=== PATIENT | female | born 1990 | race Caucasian/White ===

== ENCOUNTER 2023-06-09 06:43 | Inpatient (IN) ==
[2023-06-09] MEDS ORDERED: LIDOCAINE 1% LOCAL 20 ML VIAL INFIL PRN (07:47)
[2023-06-09] MEDS ORDERED: OXYTOCIN 30 UNITS/500 ML BAG IV PRN ×2 (07:47→16:08)
[2023-06-09] MEDS ORDERED: Patient's ALLERGY Info needs ENTERED SCH (08:00)
--- NOTE | 2023-06-09 08:09 | History & Physical Report ---
Date of Service June 09, 2023 Assessment & Plan (1) 40 weeks gestation of : (2) PROM (premature rupture of membranes): Plan: Admit, routine labs Start misoprostol 25 mcg sublingual every 4 hours for augmentation Start Pitocin when patient has made cervical change for continued augmentation Epidural if patient request Anticipate spontaneous vaginal delivery (3) Antepartum anemia complicating in third trimester: Plan: Admission hemoglobin pending (4) Elevated BP without diagnosis of hypertension: Plan: PIH labs pending History of Present Illness Chief Complaint: LOF, elevated BP Primary Care Provider: NO PCP Patient is a pleasant 32-year-old -0-2-0 at 40 weeks and 0 days dated by last menstrual period consistent with a 6-week ultrasound who presents to labor and delivery for rupture of membranes at 5 AM. States she felt a small gush of fluid, and then got up and had a large amount of fluid trickle down her leg. Notes good movement. Denies any bleeding. Notes irregular contractions. Denies any headache, blurry vision, right upper quadrant epigastric pain. Otherwise feeling well On admission to labor and delivery noted to elevated blood pressures has been complicated by antepartum anemia in which she is taking p.o. iron, has not needed to take any IV infusions of iron GBS negative History of SAB x2, history of 1 D&C after the first miscarriage Allergies Allergy/AdvReac Type Severity Reaction Status Date / Time latex Allergy Mild Irritable Verified 06/09/23 08:06 amoxicillin [From Augmentin] Allergy Hives Verified 06/09/23 08:06 clavulanic acid Allergy Hives Verified 06/09/23 08:06 [From Augmentin] Patient History Surgical History (Updated 06/09/23 @ 07:49 by Shellie Mccarthy RN) History of dilation and curettage JUNE 2021. Family History (Updated 06/09/23 @ 07:57 by Shellie Mccarthy RN) Grandmother (Maternal) Diabetes Father Hypertension Mother Anxiety and depression Mother Hyperlipemia Grandfather (Paternal) Cancer Grandmother (Paternal) No problems noted. Grandfather (Maternal) Cancer Social History Smoking Status: Never smoker Hx Alcohol Use: No Hx Substance Use: No Preferred Language: Yi [employer] Attendant Required: No Beliefs That Will Affect Care: None marital status: Current Living Situation: Spouse Current Living Situation Comment: Patient lives with and a dog. Feels Safe at Home: Yes Safety Concerns: Feels Safe At This Time OB History H[employer]TER History See record, denies history of sexually transmitted infections Review of Systems All systems reviewed & are unremarkable except as noted in HPI & below Physical Exam Constitutional: WD/WN, vitals as above Respiratory: normal respiratory effort, lungs clear to auscultation Cardiovascular: RRR, no murmur, no edema Gastrointestinal (Abdomen): normal bowel sounds, soft, nontender, no hepatosplenomegaly Gravid, Herb's 3500 Genitourinary: Cervix: 1/50/-3, posterior, firm Grossly ruptured on exam, nitrazine positive Results & Data Vital Signs (Past 12 Hours) Vital Signs Temp Pulse Resp BP 06/09/23 08:01 83 06/09/23 08:01 134/79 06/09/23 07:57 92 H 06/09/23 07:57 140/85 06/09/23 07:16 85 06/09/23 07:16 141/82 H 06/09/23 07:14 37.1 C 96 H 18 143/80 H 06/09/23 07:00 96 H 143/80 H Monitoring External Monitor heart tracing: Baseline 160, moderate variability, no accelerations, no decelerations Tocodynamometer Tocometer: Irregular contractions
[2023-06-09 08:13] LABS: Basophils # (auto) 0.03 K/uL (0.00-0.20); Basophils % (auto) 0.3 %; Eosinophils # (auto) 0.05 K/uL (0.00-0.50); Eosinophils % (auto) 0.5 %; Hematocrit (blood only) 35.7 % (37.0-47.0); Hemoglobin 12.1 g/dl (12.0-16.0); Immature Granulocytes # (auto) 0.04 K/uL (0.01-0.20); Immature Granulocytes % (auto) 0.4 %; Lymphocytes # (auto) 1.44 K/uL (1.20-3.40); Lymphocytes % (auto) 15.7 %; Mean Corpuscular Hemoglobin 29.9 pg (25.0-34.0); Mean Corpuscular Hgb Conc 33.9 g/dL (32.0-36.0); Mean Corpuscular Volume 88.1 fL (80.0-100.0); Mean Platelet Volume 10.3 fL (9.4-12.4); Monocytes # (auto) 0.49 K/uL (0.11-0.59); Monocytes % (auto) 5.3 %; Neutrophils # (auto) 7.15 K/uL (1.40-6.50); Neutrophils % (auto) 77.8 %; Platelet Count 234 K/uL (130-400); RDW Coefficient of Variation 13.6 % (11.5-14.5); Red Blood Count 4.05 M/uL (4.20-5.40)
[2023-06-09 08:29] LABS: Albumin Globulin Ratio 1.1 (0.9-2); Albumin Level 3.4 gm/dl (3.4-5.0); BUN Creatinine Ratio 16.9 (10-20); Bilirubin,Total 0.3 mg/dl (0.2-1.0); Calcium 8.7 mg/dl (8.6-10.3); Creatinine Clr Calc Pharmacy 138.3 ml/min; Est GFR (African American) 134.3 ml/min; Est GFR (Non-African American) 115.8 ml/min; Globulin 3.1 gm/dl (2.5-4.0); Potassium 3.6 mmol/L (3.5-5.1); Total Protein 6.5 gm/dl (6.0-8.3)
[2023-06-09] MEDS: LACTATED RINGER'S 1,000 ML IV PRN ×3 (08:30→20:12)
[2023-06-09] MEDS: miSOPROStoL 25 MCG TAB SL SCH ×3 (08:36→17:30)
[2023-06-09 10:15] LABS: Creatinine Urine Random 56.2 mg/dl; Protein Creatinine Ratio Urine 0.3 (0-0.2); Total Protein Urine Random 14.2 mg/dl (0-11.9)
--- NOTE | 2023-06-09 13:39 | Obstetrical Progress Note ---
Date of Service June 09, 2023 Assessment & Plan (1) 40 weeks gestation of : (2) PROM (premature rupture of membranes): Plan: continue misoprostol 25 mcg sublingual every 4 hours for augmentation Start Pitocin when patient has made cervical change for continued augmentation Epidural if patient request Anticipate spontaneous vaginal delivery (3) Antepartum anemia complicating in third trimester: Plan: Admission hemoglobin pending (4) Pre-eclampsia during in third trimester, antepartum: Plan: Daily CBC and CMP Mag and BP treatment if SBP 160 and or DBP 110 Continue to monitor symptoms SCDs ordered Admission and Anticipated Discharge Date Admission Date: June 09, 2023 Subjective Updated patient and SO at bedside about dx for preeclampsia without severe BP Results & Data Vital Signs (Past 12 Hours) Vital Signs Temp Pulse Resp BP 06/09/23 12:28 18 06/09/23 12:28 36.4 C L 18 06/09/23 12:28 68 06/09/23 12:28 140/71 06/09/23 10:50 37.1 C 06/09/23 09:10 18 06/09/23 09:10 37.1 C 18 06/09/23 08:01 83 06/09/23 08:01 134/79 06/09/23 07:57 92 H 06/09/23 07:57 140/85 06/09/23 07:16 85 06/09/23 07:16 141/82 H 06/09/23 07:14 37.1 C 96 H 18 143/80 H 06/09/23 07:00 96 H 143/80 H
--- NOTE | 2023-06-09 16:10 | Obstetrical Progress Note ---
Date of Service June 09, 2023 Assessment & Plan (1) 40 weeks gestation of : (2) PROM (premature rupture of membranes): Plan: Start oxytocin for augmentation Epidural if patient request Anticipate spontaneous vaginal delivery (3) Antepartum anemia complicating in third trimester: Plan: Admission H&H 12.1/35.7% (4) Pre-eclampsia during in third trimester, antepartum: Plan: Daily CBC and CMP Mag and BP treatment if SBP 160 and or DBP 110 Continue to monitor symptoms SCDs in place Admission and Anticipated Discharge Date Admission Date: June 09, 2023 Subjective Doing well, contractions of got more painful Physical Exam Genitourinary: heart tracing: Baseline 130, moderate variability, positive accelerations no decelerations, category 1 tracing Tocometer: Contractions every 2 to 7 minutes Cervix: 2/50/-2, moderate meconium Results & Data Vital Signs (Past 12 Hours) Vital Signs Temp Pulse Resp BP 06/09/23 15:33 80 06/09/23 15:33 134/81 06/09/23 15:32 18 06/09/23 15:32 36.9 C 18 06/09/23 14:41 18 06/09/23 14:41 37.2 C 18 06/09/23 14:41 73 06/09/23 14:41 136/73 06/09/23 13:55 18 06/09/23 13:55 37.2 C 18 06/09/23 13:30 18 06/09/23 13:30 18 06/09/23 12:28 18 06/09/23 12:28 36.4 C L 18 06/09/23 12:28 68 06/09/23 12:28 140/71 06/09/23 10:50 37.1 C 06/09/23 09:10 18 06/09/23 09:10 37.1 C 18 06/09/23 08:01 83 06/09/23 08:01 134/79 06/09/23 07:57 92 H 06/09/23 07:57 140/85 06/09/23 07:16 85 06/09/23 07:16 141/82 H 06/09/23 07:14 37.1 C 96 H 18 143/80 H 06/09/23 07:00 96 H 143/80 H
[2023-06-09] MEDS ORDERED: ePHEDrine sulfate 50 MG/ML AMP ONE (19:09)
[2023-06-09] MEDS ORDERED: fentaNYL citrate PF 100 MCG/2 ML VIAL ONE (19:09)
[2023-06-09] MEDS ORDERED: SODIUM CHLORIDE 0.9% PF INJ 10 ML VIAL ONE (19:09)
[2023-06-09] MEDS ORDERED: LIDOCAINE 2%/EPINEPHRINE 1:200,000 20 ML PF ONE (19:10)
[2023-06-09] MEDS ORDERED: fentANYL 2 MCG/ML BUPIVacaine 0.125%-NSS 100ML BAG ONE (19:10)
[2023-06-09] MEDS ORDERED: BUPIVACAINE 0.25% PF 30 ML VIAL ONE (19:10)
[2023-06-09] MEDS ORDERED: fentaNYL citrate PF 100 MCG/2 ML VIAL EPI PRN (19:11)
[2023-06-09] MEDS ORDERED: ROPIVACAINE 0.5% PF 5 MG/ML 20 ML VIAL EPI PRN (19:11)
[2023-06-09] MEDS ORDERED: SODIUM CHLORIDE 0.9% PF INJ 10 ML VIAL EPI PRN (19:11)
[2023-06-09] MEDS ORDERED: SODIUM CHLORIDE 0.9% PF INJ 10 ML VIAL EPI STA (19:11)
[2023-06-09] MEDS ORDERED: NALBUPHINE HCL 5 MG in SYRINGE 0 ML IV PRN (19:11)
[2023-06-09] MEDS ORDERED: ONDANSETRON INJ 2 MG/ML 2 ML VIAL IV PRN (19:11)
[2023-06-09] MEDS ORDERED: LIDOCAINE 2%/EPINEPHRINE 1:200,000 20 ML PF EPI STA (19:11)
[2023-06-09] MEDS ORDERED: ePHEDrine sulfate 50 MG/ML AMP IV PRN (19:11)
[2023-06-09] MEDS ORDERED: BUPIVACAINE 0.25% PF 30 ML VIAL EPI PRN (19:11)
[2023-06-09] MEDS ORDERED: BUPIVACAINE 0.25% PF 30 ML VIAL EPI STA (19:11)
[2023-06-09] MEDS ORDERED: NALOXONE HCL 1 MG in SODIUM CHLORIDE 0.9% 1,000 ML IV PRN (19:11)
[2023-06-09] MEDS ORDERED: fentaNYL citrate PF 100 MCG/2 ML VIAL EPI STA (19:11)
[2023-06-09] MEDS ORDERED: LIDOCAINE 2% MPF LOCAL 5 ML VIAL EPI PRN (19:11)
[2023-06-09] MEDS ORDERED: diphenhydrAMINE 50 MG/ML VIAL IV PRN (19:11)
--- NOTE | 2023-06-09 19:13 | Anesthesiology Consultation ---
Date of Service June 09, 2023 Assessment & Plan (1) Encounter for pre-operative examination: Chart Review Chart Review: Patient NOT seen in Pre Admission Testing and Acceptable Risk for Labor Epidural Consults Requested none History Height/Weight Height: 5 ft 4 in Weight: 97.522 kg Allergies Allergy/AdvReac Type Severity Reaction Status Date / Time latex Allergy Mild Irritable Verified 06/09/23 08:06 amoxicillin [From Augmentin] Allergy Hives Verified 06/09/23 08:06 clavulanic acid Allergy Hives Verified 06/09/23 08:06 [From Augmentin] Medications Home Medications Medication Instructions Recorded Confirmed Last Taken Pepcid 1 tab PO DAILY 06/09/23 06/09/23 06/08/23 20:00 1 tab PO DAILY 06/09/23 06/09/23 06/09/23 06:00 cetirizine 1 tab PO DAILY PRN Itching 06/09/23 06/09/23 06/07/23 07:00 iron 1 tab PO DAILY 06/09/23 06/09/23 06/09/23 06:00 Active Medications Generic Name Dose Route Start Last Admin Trade Name Freq PRN Reason Stop Dose Admin Bupivacaine HCl 30 ml 06/09/23 19:11 06/09/23 19:32 Bupivacaine 0.25% Pf 30 Ml Vial EPI 06/10/23 19:10 30 ml ONCE PRN Administration Epidural Redose Lactated Ringer's 1,000 mls @ 125 mls/hr 06/09/23 07:47 06/09/23 19:32 Lr IV 06/11/23 07:46 125 mls/hr .Q8H PRN Infusion L&D Protocol Protocol Oxytocin 30 units in 500 mls @ 2 mls/hr 06/09/23 16:08 06/09/23 19:03 Pitocin IV 06/11/23 16:07 0.12 units/hr .Q24H PRN 2 mls/hr Labor Induction/Augmentation Titration Protocol 0.12 UNITS/HR Misoprostol 25 mcg 06/09/23 08:00 06/09/23 17:30 Misoprostol 25 Mcg Tab SL 07/09/23 07:59 Not Given Q4 JUSTIN Past Medical History Medical History (Updated 06/09/23 @ 19:13 by Emir Kurtz MD) Encounter for pre-operative examination Elevated BP without diagnosis of hypertension Exercise / Class Metabolic Activity II 4-5 Yardwork/Stairs/Walk up hill Past Family History Family History Grandmother (Maternal) Diabetes Father Hypertension Mother Anxiety and depression Mother Hyperlipemia Grandfather (Paternal) Cancer Grandmother (Paternal) No problems noted. Grandfather (Maternal) Cancer Past Surgical History Surgical History History of dilation and curettage JUNE 2021. Past Anesthesia History No Hx of Anesthesia Complications and No Family Hx of Anesthesia Complications History of PONV No Hx of PONV and No Hx of Motion Sickness Social History Smoking Status: Never smoker Hx Alcohol Use: No Hx Substance Use: No Physical Exam Vital Signs Last Vital Signs Temp 37.0 C 06/09/23 19:08 Pulse 100 H 06/09/23 19:34 Resp 18 06/09/23 19:08 BP 131/79 06/09/23 19:34 Pulse Ox 100 06/09/23 19:32 Testing Laboratory Results 06/09/23 07:50 06/09/23 07:50
[2023-06-09] MEDS: fentANYL 2 MCG/ML BUPIVacaine 0.125%-NSS 100ML BAG EPI PRN (19:33)
[2023-06-10] MEDS: LACTATED RINGER'S 1,000 ML IV PRN (02:05)
[2023-06-10] MEDS: fentANYL 2 MCG/ML BUPIVacaine 0.125%-NSS 100ML BAG EPI PRN (03:33)
[2023-06-10] MEDS ORDERED: ACETAMINOPHEN 500 MG TAB ONE (04:48)
[2023-06-10] MEDS ORDERED: GENTAMICIN CONSULT ACTIVE PRN (05:06)
[2023-06-10] MEDS ORDERED: CLINDAMYCIN/D5W 900 MG/50 ML BAG IV STA (05:08)
[2023-06-10] MEDS ORDERED: BENZOCAINE 20% SPRY 85 APPLN/85 GM CAN EXT PRN (05:10)
[2023-06-10] MEDS ORDERED: OXYTOCIN 30 UNITS/500 ML BAG IV PRN (05:10)
[2023-06-10] MEDS ORDERED: DIPHTHERIA/TETANUS/PERTUSSIS Vaccine (Tdap, Age 7+yrs) 0.5mL SYR/VL IM ONE (05:10)
[2023-06-10] MEDS ORDERED: ACETAMINOPHEN 325 MG TAB PO PRN (05:10)
[2023-06-10] MEDS ORDERED: ACETAMINOPHEN W/CODEINE #3 1 TAB PO PRN (05:10)
[2023-06-10] MEDS ORDERED: HYDROCORTISONE ACETATE 25 MG SUPP PR PRN (05:10)
--- NOTE | 2023-06-10 05:15 | Delivery Summary ---
Vaginal Delivery Summary Date of Service June 10, 2023 Vaginal Delivery Summary Delivery Note History synopsis: 32-year-old -0-2-0 admitted at 40 weeks for premature rupture of membranes. She was noted to be 1 cm dilated and started on the misoprostol 25 mcg sublingual x2 doses. She progressed to 2 cm. Noted moderate meconium at the time. Was started on oxytocin for augmentation. Received an epidural for pain control and then progressed to 4 to 5 cm. She continued to make good cervical change, but during the night she remained having a category 2 tracing with heart tones baseline 170s, with good variability. And at times would have a baseline that would be between 1 50-1 60. Patient pushed with nursing staff for approximately 1-1/2 hours before I was called for delivery Delivery Summary: Patient was placed in the dorsal lithotomy position. She was prepped and draped in the usual sterile fashion. Upon maternal pushing the head was delivered atraumatically followed by the anterior shoulders, posterior shoulders then the remainder of the infants body. The infant was immediately placed on mother's abdomen, dried and stimulated. Thick meconium was noted and baby was warm to touch. The infants mouth and nose were bulb suctioned by nursing staff. A female was delivered at 0443 weight pending, with APGARS of 7 at 1 minute and 9 at 5 minutes. The was handed off to the awaiting nursing staff. Cord blood gases were obtained. The placenta delivered intact with three vessel cord. Placenta was sent to pathology. Thirty units of Pitocin were added to the IV fluid and allowed to run freely. Uterine massage was performed until uterus was deemed firm. Upon inspection of the perineum, cervix were intact. Second degree laceration was noted which was repaired with 3-0 vicryl in the usual fashion. Noted a small right sidewall that was bleeding, repaired with 3-0 Vicryl in a running fashion. Good hemostasis was noted. Upon re-inspection the patient was hemostatic. Uterus again massaged and found to be firm. Needle and sponge counts were correct. At the time of delivery patient's temperature was 37.7. She never had a documented fever while in labor. Her temperature after delivery was 37.0. Patient was given 1 g of Tylenol after delivery. However baby after delivery had a temperature of 39.5 and due to the tachycardia and maternal tachycardia, patient will be treated for suspected chorioamnionitis for 24 hours Patient was stable and allowed to recover in L&D room. was stable and remained in room with mother in the labor and delivery unit. EBL 400 mls
[2023-06-10 05:24] LABS: Base Excess Cord Arterial Bld -11.5 mEq/L (-9-1.8); Base Excess Cord Venous Blood -10.8 mEq/L (-7.7-1.9); CO2 Cord Arterial Blood 46 mmHg (39.1-73.5); Cord Venous Blood HCO3 21 mmol/L (18.4-26.8); Cord Venous Blood PCO2 73 mmHg (30.4-57.2); Cord Venous Blood PO2 < 20 mmHg (14.1-43.3); Cord Venous Blood pH 7.06 (7.20-7.44); HCO3 Cord Arterial Blood 17 mmol/L (19.7-28.5); O2 Saturation Cord Venous Bld < 60.0 % (<68); Oxygen Sat Cord Arterial Blood < 60.0 % (<60); PO2 Cord Arterial Blood 33 mmHg (4.1-31.7); pH Cord Arterial Blood 7.17 (7.1-7.38)
[2023-06-10] MEDS ORDERED: GENTAMICIN SULFATE 480 MG in DEXTROSE 5% 100 ML IV STA (05:30)
[2023-06-10 06:16] LABS: Basophils # (auto) 0.04 K/uL (0.00-0.20); Basophils % (auto) 0.2 %; Hematocrit (blood only) 30.3 % (37.0-47.0); Hemoglobin 10.3 g/dl (12.0-16.0); Immature Granulocytes # (auto) 0.14 K/uL (0.01-0.20); Immature Granulocytes % (auto) 0.7 %; Lymphocytes # (auto) 0.71 K/uL (1.20-3.40); Lymphocytes % (auto) 3.5 %; Mean Corpuscular Hemoglobin 29.8 pg (25.0-34.0); Mean Corpuscular Volume 87.6 fL (80.0-100.0); Mean Platelet Volume 10.1 fL (9.4-12.4); Monocytes # (auto) 1.22 K/uL (0.11-0.59); Neutrophils # (auto) 18.17 K/uL (1.40-6.50); Neutrophils % (auto) 89.6 %; Platelet Count 206 K/uL (130-400); RDW Coefficient of Variation 13.8 % (11.5-14.5); RDW Standard Deviation 43.4 fL (36.4-46.3); Red Blood Count 3.46 M/uL (4.20-5.40); White Blood Count 20.28 K/ul (4.8-10.8)
[2023-06-10] MEDS: IBUPROFEN 600 MG TAB PO PRN ×2 (06:24→17:07)
[2023-06-10 06:30] LABS: Albumin Globulin Ratio 1.2 (0.9-2); Albumin Level 2.8 gm/dl (3.4-5.0); BUN Creatinine Ratio 11.1 (10-20); Bilirubin,Total 0.5 mg/dl (0.2-1.0); Calcium 8.3 mg/dl (8.6-10.3); Creatinine Clr Calc Pharmacy 99.9 ml/min; Est GFR (African American) 96.7 ml/min; Est GFR (Non-African American) 83.4 ml/min; Globulin 2.4 gm/dl (2.5-4.0); Potassium 3.7 mmol/L (3.5-5.1); Total Protein 5.2 gm/dl (6.0-8.3)
[2023-06-10] MEDS: CLINDAMYCIN/D5W 900 MG/50 ML BAG IV SCH ×4 (06:56→20:47)
[2023-06-10] MEDS ORDERED: CETIRIZINE HCL 10 MG TABLET PO PRN (08:25)
[2023-06-10] MEDS: PRENATAL VITAMIN 1 TAB PO SCH (08:53)
[2023-06-10] MEDS: DOCUSATE SODIUM 100 MG CAP PO SCH ×2 (08:54→19:36)
[2023-06-10] MEDS: miSOPROStoL 25 MCG TAB SL SCH (09:26)
--- NOTE | 2023-06-10 12:33 | Anesthesia Procedure Note ---
Date of Service June 10, 2023 Anesthesia Post Epidural Note Vital Signs Vital Signs: Temp Pulse Resp BP Pulse Ox O2 Del Method 36.7 C 85 20 145/76 H 98 Room Air 06/10/23 12:06 06/10/23 12:06 06/10/23 12:06 06/10/23 12:06 06/10/23 09:30 06/10/23 09:30 Pain Intensity Bilateral Perineal: Pain Intensity: 1 Notes Mental Status: alert / awake / arousable Nausea / Vomiting: adequately controlled Pain: adequately controlled Airway Patency, RR, SpO2: stable & adequate BP & HR: stable & adequate Hydration State: stable & adequate Neuraxial Anesthesia: was administered and sensory block is resolving Anesthetic Complications: no major complications apparent and Pt Satisfied with anesthetic care Epidural: Removed without complications and With tip intact
[2023-06-11] MEDS: IBUPROFEN 600 MG TAB PO PRN ×3 (04:34→21:05)
[2023-06-11 06:12] LABS: Basophils # (auto) 0.03 K/uL (0.00-0.20); Basophils % (auto) 0.2 %; Eosinophils # (auto) 0.07 K/uL (0.00-0.50); Eosinophils % (auto) 0.5 %; Hematocrit (blood only) 24.7 % (37.0-47.0); Hemoglobin 8.3 g/dl (12.0-16.0); Immature Granulocytes # (auto) 0.11 K/uL (0.01-0.20); Immature Granulocytes % (auto) 0.8 %; Lymphocytes % (auto) 13.4 %; Mean Corpuscular Hemoglobin 30.2 pg (25.0-34.0); Mean Corpuscular Hgb Conc 33.6 g/dL (32.0-36.0); Mean Corpuscular Volume 89.8 fL (80.0-100.0); Monocytes # (auto) 0.84 K/uL (0.11-0.59); Monocytes % (auto) 5.9 %; Neutrophils # (auto) 11.25 K/uL (1.40-6.50); Neutrophils % (auto) 79.2 %; Platelet Count 174 K/uL (130-400); RDW Coefficient of Variation 14.4 % (11.5-14.5); RDW Standard Deviation 46.3 fL (36.4-46.3); Red Blood Count 2.75 M/uL (4.20-5.40)
[2023-06-11] MEDS: CLINDAMYCIN/D5W 900 MG/50 ML BAG IV SCH ×3 (06:38→22:29)
[2023-06-11 06:46] LABS: Albumin Level 2.6 gm/dl (3.4-5.0); Bilirubin,Total 0.2 mg/dl (0.2-1.0); Calcium 8.1 mg/dl (8.6-10.3)
[2023-06-11 06:52] LABS: Albumin Globulin Ratio 1.1 (0.9-2); BUN Creatinine Ratio 12.3 (10-20); Est GFR (African American) 109.8 ml/min; Est GFR (Non-African American) 94.8 ml/min; Globulin 2.4 gm/dl (2.5-4.0)
[2023-06-11] MEDS: DOCUSATE SODIUM 100 MG CAP PO SCH ×2 (07:57→21:05)
[2023-06-11] MEDS: PRENATAL VITAMIN 1 TAB PO SCH (07:57)
--- NOTE | 2023-06-11 10:43 | Obstetrical Progress Note ---
Date of Service June 11, 2023 Assessment & Plan (1) anemia: Venofer IV Subjective Ambulation: ambulating normally Voiding: no voiding problems Passing Gas:: Yes Diet Tolerance:: regular diet Lochia:: Small Feeding Type:: breast feeding Current Pain Level(1-10): 0 doing well. baby with right clavicular fracture. Physical Exam Constitutional WD/WN, vitals as above Gastrointestinal (Abdomen) Inspection/Auscultation: abdomen normal to inspection abdomen soft and non-tender. fundus firm below U Musculoskeletal Extremities: extremities normal to inspection Skin no rashes, warm and dry Neurologic patellar DTR's 2+ bilat, sensation intact Psychiatric A+Ox3, euthymic affect Results & Data Vital Signs (Past 12 Hours) Vital Signs Temp Pulse Resp BP Pulse Ox O2 Del Method 06/11/23 04:12 36.8 C 96 H 18 135/78 97 Room Air 06/10/23 23:26 36.7 C 93 H 18 130/78 98 Room Air Laboratory Results 06/09/23 06/09/23 06/10/23 07:50 09:40 04:43 WBC 9.20 RBC 4.05 L Hgb 12.1 Hct 35.7 L MCV 88.1 MCH 29.9 MCHC 33.9 RDW Std Deviation 44.0 RDW Coeff of Pavan 13.6 Plt Count 234 MPV 10.3 Immature Gran % (Auto) 0.4 Neut % (Auto) 77.8 Lymph % (Auto) 15.7 [place] % (Auto) 5.3 Eos % (Auto) 0.5 Baso % (Auto) 0.3 Neut # (Auto) 7.15 H Lymph # (Auto) 1.44 [place] # (Auto) 0.49 Eos # (Auto) 0.05 Baso # (Auto) 0.03 Immature Gran # (Auto) 0.04 Cord ABG pH 7.17 Cord ABG pCO2 46 Cord ABG pO2 33 H Cord ABG HCO3 17 L Cord ABG Base Excess -11.5 L Cord ABG O2 Sat < 60.0 Cord VBG pH 7.06 L Cord VBG pCO2 73 H Cord VBG pO2 < 20 Cord VBG HCO3 21 Cord VBG Base Excess -10.8 L Cord VBG O2 Sat < 60.0 Blood Gas Comments PIERCE Sodium 134 L Potassium 3.6 Chloride 106 Carbon Dioxide 19 L Anion Gap 9 BUN 11 Creatinine 0.65 Est Cr Clr Drug Dosing 138.3 Est GFR ( Amer) 134.3 Est GFR (Non-Af Amer) 115.8 BUN/Creatinine Ratio 16.9 Glucose 183 H Calcium 8.7 Total Bilirubin 0.3 AST 17 ALT 12 Alkaline Phosphatase 129 H Total Protein 6.5 Albumin 3.4 Globulin 3.1 Albumin/Globulin Ratio 1.1 Ur Random Creatinine 56.2 U Random Total Protein 14.2 H Protein/Creatinin Ratio 0.3 H 06/10/23 06/10/23 06/11/23 04:43 05:52 06:03 WBC 20.28 H D 14.20 H RBC 3.46 L 2.75 L Hgb 10.3 L 8.3 L Hct 30.3 L 24.7 L MCV 87.6 89.8 MCH 29.8 30.2 MCHC 34.0 33.6 RDW Std Deviation 43.4 46.3 RDW Coeff of Pavan 13.8 14.4 Plt Count 206 174 MPV 10.1 10.0 Immature Gran % (Auto) 0.7 0.8 Neut % (Auto) 89.6 79.2 Lymph % (Auto) 3.5 13.4 [place] % (Auto) 6.0 5.9 Eos % (Auto) 0.0 0.5 Baso % (Auto) 0.2 0.2 Neut # (Auto) 18.17 H 11.25 H Lymph # (Auto) 0.71 L 1.90 [place] # (Auto) 1.22 H 0.84 H Eos # (Auto) 0.00 0.07 Baso # (Auto) 0.04 0.03 Immature Gran # (Auto) 0.14 0.11 Cord ABG pH Cord ABG pCO2 Cord ABG pO2 Cord ABG HCO3 Cord ABG Base Excess Cord ABG O2 Sat Cord VBG pH Cord VBG pCO2 Cord VBG pO2 Cord VBG HCO3 Cord VBG Base Excess Cord VBG O2 Sat Blood Gas Comments PIERCE Sodium 131 L 138 Potassium 3.7 4.0 Chloride 103 109 H Carbon Dioxide 17 L 24 Anion Gap 11 5 BUN 10 10 Creatinine 0.90 0.81 Est Cr Clr Drug Dosing 99.9 111.0 Est GFR ( Amer) 96.7 109.8 Est GFR (Non-Af Amer) 83.4 94.8 BUN/Creatinine Ratio 11.1 12.3 Glucose 139 H 104 H Calcium 8.3 L 8.1 L Total Bilirubin 0.5 0.2 AST 23 30 ALT 10 14 Alkaline Phosphatase 108 H 81 Total Protein 5.2 L 5.0 L Albumin 2.8 L 2.6 L Globulin 2.4 L 2.4 L Albumin/Globulin Ratio 1.2 1.1 Ur Random Creatinine U Random Total Protein Protein/Creatinin Ratio
[2023-06-11] MEDS ORDERED: IRON SUCROSE 200 MG in 0.9 % SODIUM CHLORIDE 100 ML IV ONE (11:15)
[2023-06-11] MEDS ORDERED: bisacodyL 5 MG TABEC PO SCH (20:00)
[2023-06-12] MEDS ORDERED: bisacodyL 10 MG SUPP PR PRN (05:10)
[2023-06-12 07:33] LABS: Basophils # (auto) 0.04 K/uL (0.00-0.20); Basophils % (auto) 0.4 %; Eosinophils # (auto) 0.15 K/uL (0.00-0.50); Eosinophils % (auto) 1.4 %; Hematocrit (blood only) 27.1 % (37.0-47.0); Hemoglobin 8.9 g/dl (12.0-16.0); Immature Granulocytes # (auto) 0.17 K/uL (0.01-0.20); Immature Granulocytes % (auto) 1.6 %; Lymphocytes # (auto) 1.71 K/uL (1.20-3.40); Lymphocytes % (auto) 16.4 %; Mean Corpuscular Hemoglobin 29.9 pg (25.0-34.0); Mean Corpuscular Hgb Conc 32.8 g/dL (32.0-36.0); Mean Corpuscular Volume 90.9 fL (80.0-100.0); Mean Platelet Volume 10.3 fL (9.4-12.4); Monocytes # (auto) 0.52 K/uL (0.11-0.59); Neutrophils # (auto) 7.85 K/uL (1.40-6.50); Neutrophils % (auto) 75.2 %; Platelet Count 203 K/uL (130-400); RDW Coefficient of Variation 14.5 % (11.5-14.5); RDW Standard Deviation 47.4 fL (36.4-46.3); Red Blood Count 2.98 M/uL (4.20-5.40); White Blood Count 10.44 K/ul (4.8-10.8)
[2023-06-12 07:54] LABS: Albumin Globulin Ratio 1.1 (0.9-2); BUN Creatinine Ratio 15.2 (10-20); Bilirubin,Total 0.2 mg/dl (0.2-1.0); Calcium 8.6 mg/dl (8.6-10.3); Creatinine Clr Calc Pharmacy 136.2 ml/min; Est GFR (African American) 133.6 ml/min; Est GFR (Non-African American) 115.3 ml/min; Globulin 2.8 gm/dl (2.5-4.0); Potassium 3.9 mmol/L (3.5-5.1); Total Protein 5.8 gm/dl (6.0-8.3)
--- NOTE | 2023-06-12 09:05 | Obstetrical Progress Note ---
Date of Service June 12, 2023 Assessment & Plan Admission and Anticipated Discharge Date Admission Date: June 09, 2023 Subjective Patient is seen and examined. She feels well, no complaints. Ambulating without dizziness Voiding without difficulty Tolerating regular diet with out N&V Bleeding is minimal No fever/ chills/ CP/ SOB/ N&V/ Leg pain Breast feeding without problems Vital Signs Temp Pulse Resp BP Pulse Ox O2 Del Method 06/12/23 00:35 36.6 C 88 16 102/64 99 Room Air 06/11/23 21:00 36.5 C 90 17 121/76 98 Room Air 06/11/23 16:09 37.0 C 101 H 18 135/79 Room Air Lab Results 06/09/23 06/09/23 06/10/23 Range/Units 07:50 09:40 04:43 WBC 9.20 (4.8-10.8) K/ul RBC 4.05 L (4.20-5.40) M/uL Hgb 12.1 (12.0-16.0) g/dl Hct 35.7 L (37.0-47.0) % MCV 88.1 (80.0-100.0) fL MCH 29.9 (25.0-34.0) pg MCHC 33.9 (32.0-36.0) g/dL RDW Std Deviation 44.0 (36.4-46.3) fL RDW Coeff of Pavan 13.6 (11.5-14.5) % Plt Count 234 (130-400) K/uL MPV 10.3 (9.4-12.4) fL Immature Gran % (Auto) 0.4 % Neut % (Auto) 77.8 % Lymph % (Auto) 15.7 % Bulloch % (Auto) 5.3 % Eos % (Auto) 0.5 % Baso % (Auto) 0.3 % Neut # (Auto) 7.15 H (1.40-6.50) K/uL Lymph # (Auto) 1.44 (1.20-3.40) K/uL [place] # (Auto) 0.49 (0.11-0.59) K/uL Eos # (Auto) 0.05 (0.00-0.50) K/uL Baso # (Auto) 0.03 (0.00-0.20) K/uL Immature Gran # (Auto) 0.04 (0.01-0.20) K/uL Cord ABG pH 7.17 (7.1-7.38) Cord ABG pCO2 46 (39.1-73.5) mmHg Cord ABG pO2 33 H (4.1-31.7) mmHg Cord ABG HCO3 17 L (19.7-28.5) mmol/L Cord ABG Base Excess -11.5 L (-9-1.8) mEq/L Cord ABG O2 Sat < 60.0 (<60) % Cord VBG pH 7.06 L (7.20-7.44) Cord VBG pCO2 73 H (30.4-57.2) mmHg Cord VBG pO2 < 20 (14.1-43.3) mmHg Cord VBG HCO3 21 (18.4-26.8) mmol/L Cord VBG Base Excess -10.8 L (-7.7-1.9) mEq/L Cord VBG O2 Sat < 60.0 (<68) % Blood Gas Comments PIERCE Sodium 134 L (136-145) mmol/L Potassium 3.6 (3.5-5.1) mmol/L Chloride 106 (98-107) mmol/L Carbon Dioxide 19 L (21-32) mmol/L Anion Gap 9 (3-11) BUN 11 (6-23) mg/dl Creatinine 0.65 (0.6-1.2) mg/dl Est Cr Clr Drug Dosing 138.3 ml/min Est GFR ( Amer) 134.3 ml/min Est GFR (Non-Af Amer) 115.8 ml/min BUN/Creatinine Ratio 16.9 (10-20) Glucose 183 H (70-99(Fasting)) mg/dl Calcium 8.7 (8.6-10.3) mg/dl Total Bilirubin 0.3 (0.2-1.0) mg/dl AST 17 (13-39) U/L ALT 12 (7-52) U/L Alkaline Phosphatase 129 H (34-104) U/L Total Protein 6.5 (6.0-8.3) gm/dl Albumin 3.4 (3.4-5.0) gm/dl Globulin 3.1 (2.5-4.0) gm/dl Albumin/Globulin Ratio 1.1 (0.9-2) Ur Random Creatinine 56.2 mg/dl U Random Total Protein 14.2 H (0-11.9) mg/dl Protein/Creatinin Ratio 0.3 H (0-0.2) 06/10/23 06/10/23 06/11/23 Range/Units 04:43 05:52 06:03 WBC 20.28 H D 14.20 H (4.8-10.8) K/ul RBC 3.46 L 2.75 L (4.20-5.40) M/uL Hgb 10.3 L 8.3 L (12.0-16.0) g/dl Hct 30.3 L 24.7 L (37.0-47.0) % MCV 87.6 89.8 (80.0-100.0) fL MCH 29.8 30.2 (25.0-34.0) pg MCHC 34.0 33.6 (32.0-36.0) g/dL RDW Std Deviation 43.4 46.3 (36.4-46.3) fL RDW Coeff of Pavan 13.8 14.4 (11.5-14.5) % Plt Count 206 174 (130-400) K/uL MPV 10.1 10.0 (9.4-12.4) fL Immature Gran % (Auto) 0.7 0.8 % Neut % (Auto) 89.6 79.2 % Lymph % (Auto) 3.5 13.4 % [place] % (Auto) 6.0 5.9 % Eos % (Auto) 0.0 0.5 % Baso % (Auto) 0.2 0.2 % Neut # (Auto) 18.17 H 11.25 H (1.40-6.50) K/uL Lymph # (Auto) 0.71 L 1.90 (1.20-3.40) K/uL [place] # (Auto) 1.22 H 0.84 H (0.11-0.59) K/uL Eos # (Auto) 0.00 0.07 (0.00-0.50) K/uL Baso # (Auto) 0.04 0.03 (0.00-0.20) K/uL Immature Gran # (Auto) 0.14 0.11 (0.01-0.20) K/uL Cord ABG pH (7.1-7.38) Cord ABG pCO2 (39.1-73.5) mmHg Cord ABG pO2 (4.1-31.7) mmHg Cord ABG HCO3 (19.7-28.5) mmol/L Cord ABG Base Excess (-9-1.8) mEq/L Cord ABG O2 Sat (<60) % Cord VBG pH (7.20-7.44) Cord VBG pCO2 (30.4-57.2) mmHg Cord VBG pO2 (14.1-43.3) mmHg Cord VBG HCO3 (18.4-26.8) mmol/L Cord VBG Base Excess (-7.7-1.9) mEq/L Cord VBG O2 Sat (<68) % Blood Gas Comments PIERCE Sodium 131 L 138 (136-145) mmol/L Potassium 3.7 4.0 (3.5-5.1) mmol/L Chloride 103 109 H (98-107) mmol/L Carbon Dioxide 17 L 24 (21-32) mmol/L Anion Gap 11 5 (3-11) BUN 10 10 (6-23) mg/dl Creatinine 0.90 0.81 (0.6-1.2) mg/dl Est Cr Clr Drug Dosing 99.9 111.0 ml/min Est GFR ( Amer) 96.7 109.8 ml/min Est GFR (Non-Af Amer) 83.4 94.8 ml/min BUN/Creatinine Ratio 11.1 12.3 (10-20) Glucose 139 H 104 H (70-99(Fasting)) mg/dl Calcium 8.3 L 8.1 L (8.6-10.3) mg/dl Total Bilirubin 0.5 0.2 (0.2-1.0) mg/dl AST 23 30 (13-39) U/L ALT 10 14 (7-52) U/L Alkaline Phosphatase 108 H 81 (34-104) U/L Total Protein 5.2 L 5.0 L (6.0-8.3) gm/dl Albumin 2.8 L 2.6 L (3.4-5.0) gm/dl Globulin 2.4 L 2.4 L (2.5-4.0) gm/dl Albumin/Globulin Ratio 1.2 1.1 (0.9-2) Ur Random Creatinine mg/dl U Random Total Protein (0-11.9) mg/dl Protein/Creatinin Ratio (0-0.2) 06/12/23 Range/Units 07:14 WBC 10.44 (4.8-10.8) K/ul RBC 2.98 L (4.20-5.40) M/uL Hgb 8.9 L (12.0-16.0) g/dl Hct 27.1 L (37.0-47.0) % MCV 90.9 (80.0-100.0) fL MCH 29.9 (25.0-34.0) pg MCHC 32.8 (32.0-36.0) g/dL RDW Std Deviation 47.4 H (36.4-46.3) fL RDW Coeff of Pavan 14.5 (11.5-14.5) % Plt Count 203 (130-400) K/uL MPV 10.3 (9.4-12.4) fL Immature Gran % (Auto) 1.6 % Neut % (Auto) 75.2 % Lymph % (Auto) 16.4 % [place] % (Auto) 5.0 % Eos % (Auto) 1.4 % Baso % (Auto) 0.4 % Neut # (Auto) 7.85 H (1.40-6.50) K/uL Lymph # (Auto) 1.71 (1.20-3.40) K/uL [place] # (Auto) 0.52 (0.11-0.59) K/uL Eos # (Auto) 0.15 (0.00-0.50) K/uL Baso # (Auto) 0.04 (0.00-0.20) K/uL Immature Gran # (Auto) 0.17 (0.01-0.20) K/uL Cord ABG pH (7.1-7.38) Cord ABG pCO2 (39.1-73.5) mmHg Cord ABG pO2 (4.1-31.7) mmHg Cord ABG HCO3 (19.7-28.5) mmol/L Cord ABG Base Excess (-9-1.8) mEq/L Cord ABG O2 Sat (<60) % Cord VBG pH (7.20-7.44) Cord VBG pCO2 (30.4-57.2) mmHg Cord VBG pO2 (14.1-43.3) mmHg Cord VBG HCO3 (18.4-26.8) mmol/L Cord VBG Base Excess (-7.7-1.9) mEq/L Cord VBG O2 Sat (<68) % Blood Gas Comments Sodium 139 (136-145) mmol/L Potassium 3.9 (3.5-5.1) mmol/L Chloride 107 (98-107) mmol/L Carbon Dioxide 27 (21-32) mmol/L Anion Gap 5 (3-11) BUN 10 (6-23) mg/dl Creatinine 0.66 (0.6-1.2) mg/dl Est Cr Clr Drug Dosing 136.2 ml/min Est GFR ( Amer) 133.6 ml/min Est GFR (Non-Af Amer) 115.3 ml/min BUN/Creatinine Ratio 15.2 (10-20) Glucose 84 (70-99(Fasting)) mg/dl Calcium 8.6 (8.6-10.3) mg/dl Total Bilirubin 0.2 (0.2-1.0) mg/dl AST 30 (13-39) U/L ALT 20 (7-52) U/L Alkaline Phosphatase 90 (34-104) U/L Total Protein 5.8 L (6.0-8.3) gm/dl Albumin 3.0 L (3.4-5.0) gm/dl Globulin 2.8 (2.5-4.0) gm/dl Albumin/Globulin Ratio 1.1 (0.9-2) Ur Random Creatinine mg/dl U Random Total Protein (0-11.9) mg/dl Protein/Creatinin Ratio (0-0.2) PE: General: Alert, orientedx3, NAD Abd: soft, NT, fundus firm, below Umbilicus Perineum intact, Lochia rubra minimal Ext; NT, no edema AP: 32 yo s/p , ppd# 2 VSS Afebrile doing well Continue routine care All questions were answered Baby is staying until tomorrow D/C to nesting Results & Data Vital Signs (Past 12 Hours) Vital Signs Temp Pulse Resp BP Pulse Ox O2 Del Method 06/12/23 00:35 36.6 C 88 16 102/64 99 Room Air
[2023-06-12] MEDS: IBUPROFEN 600 MG TAB PO PRN ×2 (10:03→16:43)
[2023-06-12] MEDS: PRENATAL VITAMIN 1 TAB PO SCH (10:03)
[2023-06-12] MEDS: DOCUSATE SODIUM 100 MG CAP PO SCH (10:03)
[2023-06-12] MEDS: CLINDAMYCIN/D5W 900 MG/50 ML BAG IV SCH ×2 (10:04→16:59)
--- NOTE | 2023-06-13 09:20 | Progress Note ---
Date of Service June 13, 2023 Assessment & Plan (1) Mother currently breast-feeding: Plan: Breast-feeding education given to patient. Resources also given to patient. Patient to follow-up in clinic as scheduled Admission and Anticipated Discharge Date Admission Date: June 09, 2023 Subjective Patient had been discharged, but was nesting with baby. I checked in on patient to see how she was doing. Bonding well with baby. Significant other in the room. Patient is exclusively pumping at this time. Supply has been good. D iscussed with patient about clavicular fracture, unsure if that happened at time of delivery versus resuscitation of infant. There was no complications at the time of delivery, explained there was no shoulder dystocia or issues with delivering the infant. May have been during the time of resuscitation when baby was vigorously stimulated and dried. However it is hard to say. Explained risk of clavicular fracture can happen in up to 1-1/2% of deliveries. Patient and baby to follow-up with peds as scheduled.
--- OUTSIDE RECORDS SUMMARY | 2023-06-13 15:49 | External Medical Summary | Summary of Care ---
Author Name Unknown Organization [facility] Address [address] [place] [address] Phone [phone] Care Team Providers Care Sub Acute Care Nurse Name Role Phone Unavailable Primary Care Provider Unavailabl e Reason for Visit * Reason Comments Return Visit Encounter Details Date Type Department Care Team Description 05/22/2023 Office Visit Gynecology/Obstetrics Horace Menendez [address] [place] [address] Rosemary Angel CRNP [address] [place] [address] Supervision of other normal , antepartum*; Antepartum anemia complicating Allergies Active Allergy Reactions Severity Noted Date Comments Amoxicillin-Pot Clavulanate Hives 10/19/19 23 Latex Itching 10/23/2022 documented as of this encounter (statuses as of 05/22/2023) Medications Medication Sig Dispensed Refills Start Date End Date Status /Folic Acid Oral Tablet Take by mouth. Womens One A Day gummies- contains 800mcg Folic Acid. 0 Active Cetirizine HCl 10 MG Oral Tablet Take 1 Tablet by mouth in the morning. 0 Active Iron 325 (65 Fe) MG Oral Tablet Take by mouth. 0 Active Famotidine 10 MG Oral Tablet (Pepcid) Take 1 Tablet by mouth in the morning and 1 Tablet before bedtime. 0 Active documented as of this encounter (statuses as of 05/22/2023) Active Problems Problem Noted Date Antepartum anemia complicating 05/12/2023 Supervision of other normal , a ntepartum 10/23/2022 Estimated Date of Delivery Comme nts Yes 06/09/2023 Based on last me nstrual period of 09/02/2022 (Exact Date) documented as of this encounter (statuses as of 05/22/2023) Immunizations Name Administration Dates Next Due SEASONAL INFLUENZA, PF, 6 M & Above, IM , (FLULAVAL or FLUZONE) 04/18/2023 TDAP (age 10 and older)(Boostrix) 03/21/2023 documented as of this encounter Social History Tobacco Use Types Packs/Day Years Used Date Smoking Tobacco: Never Smokeless Tobacco: Never Alcohol Use Standard Drinks/Week Comments Not Currently 0 (1 standard drink = 0.6 oz pur e alcohol) Food Insecurity Answer Date Recorded Within the past 12 months, y ou worried that your food would run out before you got money to buy more. Never true 02/05/2023 Within the past 12 months, t he food you bought just didn't last and you didn't have money to get more. Never true 02/05/2023 Estimated Date of Delivery Comme nts Yes 06/09/2023 Based on last me nstrual period of 09/02/2022 (Exact Date) Sex Assigned at Date Recorded Female 10/15/2022 1:39 PM E DT Job Start Date Occupation Industry Not on file Not on file Not on file documented as of this encounter Last Filed Vital Signs Vital Sign Reading Time Taken Comments Blood Pressure 128/78 05/22/2023 10:16 AM EDT Pulse - - Temperature - - Respiratory Rate - - Oxygen Saturation - - Inhaled Oxygen Concentration - - Weight 98.4 kg (217 lb) 05/22/2023 10:16 AM EDT Height 162.6 cm (5' 4") 05/22/2023 10:16 AM EDT Body Mass Index 37.25 05/22/2023 10:16 AM EDT documented in this encounter Progress Notes * ANNETTE Chiu - 05/22/2023 10:45 AM EDT 37w3d No concerns. Baby is active. No contractions, no bleeding or LOF. ANNETTE Chiu * Katrin Suarez LPN - 05/22/2023 10:20 AM EDT 37w3d Pt denies any concerns. documented in this encounter Plan of Treatment Upcoming Encounters Date Type Specialty Care Team Description 05/26/2023 Office Visit Gynecology Obstetrics Tana Zhao MD [address] [place] [address] [place] [address] 06/02/2023 Office Visit Gynecology Obstetrics Vernon Smith MD [address] [place] [address] 06/09/2023 Office Visit Gynecology Obstetrics eVrnon Smith MD [address] [place] [address] Health Maintenance Due Date Last Done Comments Hepatitis B (1 of 3 - 3-dose series) 1988 COVID-19 Vaccine (#1) 06/19/1989 Depression Screening 2000 Pap Smear 10/23/2025 10/23/2022 Cervical Cancer Screening 10/24/2027 HPV/Co-Test 10/24/2027 10/23/2022 DTaP,Tdap,and Td Vaccines (2 - Td or Tdap) 03/21/2033 03/21/2023 Influenza Vaccine (FLU shot) Completed , 04/18/2023 GARDASIL-HPV IMMUNIZATION SERIES Aged Out No longer eligible b ased on patient's age to complete this topic MENINGOCOCCAL (MENACTRA/MENVEO) Aged Out No longer eligible b ased on patient's age to complete this topic Pneumococcal Vaccine: Pediatrics (0 to 5 Years) and At-Risk Patients (6 to 64 Years) Aged Out No longer eligible b ased on patient's age to complete this topic documented as of this encounter Medical Devices Not on filedocumented as of this encounter Visit Diagnoses Diagnosis Supervision of other normal , antepartum- Primary Antepartum anemia complicating Anemia, antepartum documented in this encounter
--- OUTSIDE RECORDS SUMMARY | 2023-06-13 15:49 | External Medical Summary | Summary of Care ---
Author Name Unknown Organization [facility] Address [address] [place] [address] Phone [phone] Care Team Providers Care Academic Computing Director Name Role Phone Unavailable Primary Care Provider Unavailabl e Reason for Visit * Reason Comments Return Visit Encounter Details Date Type Department Care Team (Late st Contact Info) Description 05/26/2023 8:45 AM EDT Office Visit Gynecology/Obstetric [facility] [address] [facility] [place] [address] Tana Zhao MD [address] [facility] [place], [place] [phone] 38 weeks gestation of *; Supervision of other normal , antepartum; Antepartum anemia complicating Allergies Active Allergy Reactions Criticality Noted Date Comments Amoxicillin-Pot Clavulanate Hives 10/19/19 23 Latex Itching 10/23/2022 documented as of this encounter (statuses as of 05/26/2023) Medications Medication Sig Dispensed Refills Start Date [...] as of this encounter (statuses as of 05/26/2023) Active Problems Problem Noted Date Diagnosed Date Antepartum anemia complicating 023 Supervision of other normal , antepartu m 10/23/2022 Estimated Date of Delivery Comme nts Yes 06/09/2023 Based on last me nstrual period of 09/02/2022 (Exact Date) documented as of this encounter (statuses as of 05/26/2023) Immunizations Name Administration Dates Next Due SEASONAL INFLUENZA, PF, 6 M & Above, IM , (FLULAVAL or FLUZONE) 04/18/2023 TDAP (age 10 and older)(Boostrix) 03/21/2023 documented as of this encounter Social History Tobacco Use Types Packs/Day Years Used Date Smoking Tobacco: Never Smokeless Tobacco: Never Alcohol Use Standard Drinks/Week Comments Not Currently 0 (1 standard drink = 0.6 oz pur e alcohol) Hunger Vital Sign Answer Date Recorded Within the past 12 months, y ou worried that your food would run out before you got the money to buy more. Never true 02/05/20 Within the past 12 months, t he food you bought just didn't last and you didn't have money to get more. Never true 02/04/2023 [place] Depression Scale Answer Date Recorded [place] Depression Scale Total 0 05/12/2023 The thought of harming myself has occurred to me . Never 05/12/2023 Estimated Date of Delivery Comme nts Yes 06/09/2023 Based on last me nstrual period of 09/02/2022 (Exact Date) Sex and Gender Information Value Date Recorded Sex Assigned at Female 10/15/2022 1:39 PM EDT Gender Identity Female 10/15/2022 1:39 PM EDT Sexual Orientation Choose not to disclose 2022 1:39 PM EDT Job Start Date Occupation Industry Not on file Not on file Not on file documented as of this encounter Last Filed Vital Signs Vital Sign Reading Time Taken Comments Blood Pressure 128/76 05/26/2023 8:42 AM EDT Pulse - - Temperature - - Respiratory Rate - - Oxygen Saturation - - Inhaled Oxygen Concentration - - Weight 98.4 kg (217 lb) 05/26/2023 8:42 AM EDT Height 162.6 cm (5' 4") 05/26/2023 8:42 AM EDT Body Mass Index 37.25 05/26/2023 8:42 AM EDT documented in this encounter Progress Notes * Tana Zhao MD - 05/26/2023 8:45 AM EDT Patient is 32 year old at 38 0/7 weeks who presents for [place] visit Denies leaking of fluid, or vaginal bleeding. Noted good movement, irregular ctx at times Denies headache, blurry vision, RUQ or epigastric pain. Recent EFW wnl Problem list reviewed BP 128/76 | Ht 1.626 m (5' 4") | Wt 98.4 kg (217 lb) | LMP 09/02/2022 (Exact Date) | BMI 37.25 kg/m | BSA 2.11 m FH: 40 FHT: 155 Plan: Labor and preeclampsia warnings reviewed Flu/Covid booster vaccine already received Discussed IOL at 39 weeks, per ARRIVE trial. Patient and her partner have thoroughly reviewed ARRIVE study literature, and unsure if they want to proceed with elective induction at 39 weeks. Is awareof decreasing the risk of preeclampsia, rate with delivery prior to 42-42 weeks. Also counseled would not recommend going past 42 weeks as there is exponential growth in stillbirth rate. Patient and her partner would like to discuss at this time and let us know when she would like to proceed with scheduled induction. Offered membrane stripping at 39 weeks Patient to follow-up in 1 week RTC 1 weeks V Pavel JORGE PhD documented in this encounter Nursing Notes * Mildred Mallory LPN - 05/26/2023 8:53 AM EDT 38w0d Denies concerns. Agreeable to scheduling IOL, probably closer to 41 weeks. documented in this encounter Plan of Treatment Upcoming Encounters Date Type Department Care Team (Late st Contact Info) Description 06/02/2023 8:45 AM EDT Office Visit Gynecology/Obstetrics [address] [place] [address] Vernon Smith MD [address] [place] [id number] 06/09/2023 8:45 AM EST Office Visit Gynecology/Obstetrics Horace Menendez [address] [place] [address] Vernon mSith MD [address] [place] [address] Health Maintenance Due Date Last Done Comments [...] as of this encounter Visit Diagnoses Diagnosis 38 weeks gestation of - Primary state, incidental Supervision of other normal , antepartum Antepartum anemia complicating Anemia, antepartum documented in this encounter
--- OUTSIDE RECORDS SUMMARY | 2023-06-13 15:49 | External Medical Summary | Summary of Care ---
Author Name Unknown Organization [facility] Address [address] [place] [address] Phone [phone] Care Team Providers Care Advisory Intern Name Role Phone Unavailable Primary Care Provider Unavailabl e Reason for Visit * Reason Comments Return Visit Encounter Details Date Type Department Care Team Description 05/14/2023 [facility] [address] [place] [address] Anna Marie CRNP [address] [place] [id number] Supervision of other normal , antepartum*; Antepartum anemia complicating Allergies Active Allergy Reactions Severity Noted Date Comments Amoxicillin-Pot Clavulanate Hives 10/19/19 23 Latex Itching 10/23/2022 documented as of this encounter (statuses as of 05/14/2023) Medications Medication Sig Dispensed Refills Start Date [...] as of this encounter (statuses as of 05/14/2023) Active Problems Problem Noted Date Antepartum anemia complicating 05/12/2023 Supervision of other normal , a ntepartum 10/23/2022 Estimated Date of Delivery Comme nts Yes 06/09/2023 Based on last me nstrual period of 09/02/2022 (Exact Date) documented as of this encounter (statuses as of 05/14/2023) Immunizations Name Administration Dates Next Due SEASONAL [...] Sign Reading Time Taken Comments Blood Pressure 124/76 05/14/2023 1:31 PM EDT Pulse - - Temperature - - Respiratory Rate - - Oxygen Saturation - - Inhaled Oxygen Concentration - - Weight 96.2 kg (212 lb) 05/14/2023 1:31 PM EDT Height 162.6 cm (5' 4") 05/14/2023 1:31 PM EDT Body Mass Index 36.39 05/14/2023 1:31 PM EDT documented in this encounter Progress Notes * ANNETTE Lujan - 05/14/2023 1:37 PM EDT Acute visit at 36w2d. [place] like she was more damp yesterday than normal. Some white discharge, no itching/burning or change in odor. Period like cramping that comes and goes for past 24-36 hours. Nothing that she feels she can time. + movement Growth ultrasound completed today, final report in process. Preliminary worksheet shows EFW 60%, JUSTYN 17.8 cm, vertex, +cardiac activity. Exam: GENERAL: alert and no distress PELVIC: External genitalia and vagina anatomy within normal limits, No significant vulvar lesions, +white physiologic discharge, Cervix normal in appearance without lesions or purulent discharge. No pooling w/valsalva, neg Nitrazine. Cervix closed, 50% effaced. Pt reassured. Discussed signs of labor and when to call. [facility] Business System Manager Documentation Provider requested manager machine. Name of manager machine: ANNETTE Simmons LPN documented in this encounter Nursing Notes * Velma Morales LPN - 05/14/2023 1:36 PM EDT 36w2d Denies vaginal bleeding/rom [place] like she was more damp yesterday than normal. States hx of leaky bladder Period like cramping that comes and goes for past 24-36 hours. + movement documented in this encounter Plan of Treatment Upcoming Encounters Date Type Specialty Care Team Description 05/22/2023 Office Visit Gynecology Obstetrics Rosemary Angel CRNP [address] [place] [address] 05/26/2023 Office Visit Gynecology Obstetrics Tana Zhao MD [address] [place] [address] [place] [address] 06/02/2023 Office Visit Gynecology Obstetrics Vernon Smith MD [address] [place] [address] 06/09/2023 Office Visit Gynecology Obstetrics Vernon Smith MD [address] [place] [address] Health Maintenance Due Date Last Done Comments [...] Not on filedocumented as of this encounter Procedures Procedure Name Priority Date/Time Associated Diagnosis Comments URINALYSIS, POINT OF CARE (ENTER/EDIT) Routine 05/14/2023 Supervision of other normal , antepartum documented in this encounter Results * URINALYSIS, POINT OF CARE (ENTER/EDIT) (05/14/2023) Color, Urine Yellow Yellow or Light Yellow Clarity, Urine Clear Clear Glucose, Urine 100 Negative mg/dL Bilirubin, Urine Negative Negative Ketone, Urine Negative Negative mg/dL Specific [place], Urine 1.030 1.003 - 1.030 Blood, Urine Negative Negative pH, Urine 5.5 5.0 - 7.5 units Protein, Urine 30 Negative mg/dL Urobilinogen, Urine 0.2 0.2 - 1.0 mg/dL Nitrite, Urine Negative Negative Esterase, Urine Negative Negative Urine 05/14/2023 [facility] O F CARE TEST ENTER/EDIT ORDERABLES documented in this encounter Visit Diagnoses Diagnosis Supervision of other normal , antepartum- Primary Antepartum anemia complicating Anemia, antepartum documented in this encounter
--- OUTSIDE RECORDS SUMMARY | 2023-06-13 15:49 | External Medical Summary | Summary of Care ---
Author Name Unknown Organization [facility] Address [address] [place] [address] Phone [phone] Care Team Providers Care Shirt Folder Name Role Phone Unavailable Primary Care Provider Unavailabl e Reason for Visit * Reason Comments Return Visit Encounter Details Date Type Department Care Team (Late st Contact Info) Description 06/02/2023 8:45 AM EDT Office Visit Gynecology/Obstetric [facility]an Menendez [address] [place] [address] Vernon Smith MD [address] [facility] [place] [address] Supervision of other normal , antepartum*; Antepartum anemia complicating Allergies Active Allergy Reactions Criticality Noted Date Comments Amoxicillin-Pot Clavulanate Hives 10/19/19 23 Latex Itching 10/23/2022 documented as of this encounter (statuses as of 06/02/2023) Medications Medication Sig Dispensed Refills Start Date [...] as of this encounter (statuses as of 06/02/2023) Active Problems Problem Noted Date Diagnosed Date Antepartum anemia complicating 023 Supervision of other normal , antepartu m 10/23/2022 Estimated Date of Delivery Comme nts Yes 06/09/2023 Based on last me nstrual period of 09/02/2022 (Exact Date) documented as of this encounter (statuses as of 06/02/2023) Immunizations Name Administration Dates Next Due SEASONAL [...] money to buy more. Never true 02/05/20 23 Within the past 12 months, t he food you bought just didn't last and you didn't have money to get more. Never true 02/04/2023 [place] Depression Scale Answer Date Recorded [place] Depression Scale Total 0 05/12/2023 The thought [...] Sign Reading Time Taken Comments Blood Pressure 120/72 06/02/2023 8:49 AM EDT Pulse - - Temperature - - Respiratory Rate - - Oxygen Saturation - - Inhaled Oxygen Concentration - - Weight 98.9 kg (218 lb) 06/02/2023 8:49 AM EDT Height 162.6 cm (5' 4") 06/02/2023 8:49 AM EDT Body Mass Index 37.42 06/02/2023 8:49 AM EDT documented in this encounter Progress Notes * Helen Berrios LPN - 06/02/2023 8:49 AM EDT 39w0d documented in this encounter Plan of Treatment Upcoming Encounters Date Type Department Care Team (Late st Contact Info) Description 06/09/2023 8:45 AM EST Office Visit Gynecology/Obstetrics [facility] Menendez [address] [place] [address] Vernon Smith MD [address] [place] [address] Health Maintenance Due Date Last Done Comments [...]
--- OUTSIDE RECORDS SUMMARY | 2023-06-13 15:50 | External Medical Summary | Summary of Care ---
Author Name Unknown Organization [facility] Address [address] [place] [address] Phone [phone] Care Team Providers Care Shut Off Worker Name Role Phone Unavailable Primary Care Provider Unavailabl e Reason for Visit * Reason Comments Return Visit Encounter Details Date Type Department Care Team Description 04/28/2023 [facility] [address] [place] [address] Vernon Smith MD [address] [place] [phone] Supervision of other normal , antepartum* Allergies Active Allergy Reactions Severity Noted Date Comments Amoxicillin-Pot Clavulanate Hives 10/19/19 23 Latex Itching 10/23/2022 documented as of this encounter (statuses as of 04/28/2023) Medications Medication Sig Dispensed Refills Start Date End Date Status /Folic Acid Oral Tablet Take by mouth. Womens One A Day gummies- contains 800mcg Folic Acid. 0 Active Cetirizine HCl 10 MG Oral Tablet Take 1 Tablet by mouth in the morning. 0 Active documented as of this encounter (statuses as of 04/28/2023) Active Problems Problem Noted Date Supervision of other normal , a ntepartum 10/23/2022 Estimated Date of Delivery Comme nts Yes 06/09/2023 Based on last me nstrual period of 09/02/2022 (Exact Date) documented as of this encounter (statuses as of 04/28/2023) Immunizations Name Administration Dates Next Due Seasonal Influenza, PF, 6 mons & Above, IM , (Fl ulaval) 04/18/2023 TDAP (age 10 and older)(Boostrix) 03/21/2023 [...] Sign Reading Time Taken Comments Blood Pressure 122/76 04/28/2023 8:52 AM EDT Pulse - - Temperature - - Respiratory Rate - - Oxygen Saturation - - Inhaled Oxygen Concentration - - Weight 95.3 kg (210 lb) 04/28/2023 8:52 AM EDT Height 162.6 cm (5' 4") 04/28/2023 8:52 AM EDT Body Mass Index 36.05 04/28/2023 8:52 AM EDT documented in this encounter Progress Notes * Vernon Smith MD - 04/28/2023 9:07 AM EDT Pt doing well No significant complaints RTc 2 weeks * Helen Berrios LPN - 04/28/2023 8:52 AM EDT 34w0d documented in this encounter Plan of Treatment Upcoming Encounters Date Type Specialty Care Team Description 05/12/2023 Office Visit Gynecology Obstetrics Anna Marie CRNP [address] [place] [address] 05/22/2023 Office Visit Gynecology Obstetrics Rosemary Angel CRNP [address] [place] [address] 05/26/2023 Office Visit Gynecology Obstetrics Tana Zhao MD [address] [facility] [place] [phone] 06/02/2023 Office Visit Gynecology Obstetrics Vernon Smtih MD [address] [place] [address] 06/09/2023 Office Visit Gynecology Obstetrics Vernon Smith MD [address] [place] [address] Health Maintenance Due Date Last Done Comments Hepatitis B (1 of 3 - 3-dose series) 1988 COVID-19 Vaccine (#1) 06/19/1989 Depression Screening 2000 Pap Smear 10/23/2025 10/23/2022 Cervical Cancer Screening 10/24/2027 HPV/Co-Test 10/24/2027 10/23/2022 DTaP,Tdap,and Td Vaccines (2 - Td or Tdap) 03/21/2033 03/21/2023 Hepatitis C Screening Completed 10/23/2022 , 10/23/2022, 10/23/2022 Influenza Vaccine (FLU shot) Completed 04/18/2023 GARDASIL-HPV IMMUNIZATION SERIES Aged Out No [...] Supervision of other normal , antepartum- Primary documented in this encounter
--- OUTSIDE RECORDS SUMMARY | 2023-06-13 15:50 | External Medical Summary ---
Author Name Unknown Address Unknown Organization [id number][place] [place] [facility] [address] [place] [address] Laboratory Report Ordering Provider Test Date Status KHOA STEVE 03/21/2023 10:11:29 Final Observation Date Value Abnormality Reference (Units ) Status Creatinine 03/21/2023 10:11:29 0.6 0.5-1.0 (mg/dL) Final Glomerular filtration rate/1.73 sq M.predicted [Volume Rate/Area] in Serum, Plasma or Blood by Creatinine-based formula (CKD-EPI) 03/21/2023 10:11:29 >90 >=60 (mL/min) Final eGFR is calculated based on the CKD-EPI 2020 equation Performing Location [facility] [place] [address] [place] [address]
--- OUTSIDE RECORDS SUMMARY | 2023-06-13 15:50 | External Medical Summary ---
Author Name Unknown Address Unknown Organization [id number][place] [place] [facility] [address] [facility] [address] [facility] [address] Laboratory Report Ordering Provider Test Date Status KHOA STEVE 05/12/2023 09:06:28 Final Observation Date Value Abnormality Reference (Units ) Status Streptococcus agalactiae DNA [Presence] in Specimen by OMID with probe detection 05/12/2023 09:06:28 Negative Negative Final No Group B Streptococcus det ected by culture-enhanced PCR (amplified probe).
The collection of vaginal/rectal swab specimen combinations (FDA approved specimen type) is optimal for the detection of Group B Streptococcus. Single source collection (vaginal only or rectal only) or alternate specimen sources may lead to false negative results. Performing Location [facility] [place] [address] [facility] [address]
--- OUTSIDE RECORDS SUMMARY | 2023-06-13 15:50 | External Medical Summary ---
Author Name Unknown Address Unknown Organization [id number]:[facility] [place] [address] [place] [address] Laboratory Report Ordering Provider Test Date Status KHOA STEVE 03/21/2023 10:11:29 Final Observation Date Value Abnormality Reference (Units ) Status Iron 03/21/2023 10:11:29 66 33-151 (ug/dL) Final Iron-binding capacity 03/21/2023 10:11:29 486 Above high normal 250-425 (ug/dL) Final Transferrin Sat % 03/21/2023 10:11:29 14 Below low normal 15-55 (%) Final Performing Location [facility] [place] [address] [place] [address]
--- OUTSIDE RECORDS SUMMARY | 2023-06-13 15:50 | External Medical Summary ---
Author Name Unknown Address Unknown Organization [id number][place] [place] [address] [facility] [address] [facility] [address] Laboratory Report Ordering Provider Test Date Status KHOA STEVE 03/21/2023 10:11:29 Final Observation Date Value Abnormality Reference (Units ) Status Treponema pallidum Ab [Presence] in Serum by Immunoassay 03/21/2023 10:11:29 Nonreactive Nonreactive Final No serologic evidence of syp hilis. No additional testing clinicially indicated at this time. Consider repeat testing in 2-4 weeks if acute or primary syphilis is suspected. Performing Location [facility] [place] [address] [facility] [address]
--- OUTSIDE RECORDS SUMMARY | 2023-06-13 15:50 | External Medical Summary | Summary of Care ---
Author Name Unknown Organization [facility] Address [address] [place] [address] Phone [phone] Care Team Providers Care Pulling Unit Floorhand Name Role Phone Unavailable Primary Care Provider Unavailabl e Reason for Visit * Reason Comments Outpatient Testing Encounter Details Date Type Department Care Team Description 03/25/2023 Laboratory Laboratory, [facility] [address] [place] [address] [facility] [address] [place] [address] Impaired glucose in , antepartum Allergies Active Allergy Reactions Severity Noted Date Comments Amoxicillin-Pot Clavulanate Hives 10/19/19 23 Latex Itching 10/23/2022 documented as of this encounter (statuses as of 03/25/2023) Medications Medication Sig Dispensed Refills Start Date End Date Status /Folic Acid Oral Tablet Take by mouth. Womens One A Day gummies- contains 800mcg Folic Acid. 0 Active Cetirizine HCl 10 MG Oral Tablet Take 1 Tablet by mouth in the morning. 0 Active documented as of this encounter (statuses as of 03/25/2023) Active Problems Problem Noted Date Supervision of other normal , a ntepartum 10/23/2022 Estimated Date of Delivery Comme nts Yes 06/09/2023 Based on last me nstrual period of 09/02/2022 (Exact Date) documented as of this encounter (statuses as of 03/25/2023) Immunizations Name Administration Dates Next Due TDAP (age 10 and older)(Boostrix) 03/21/2023 documented [...] on file documented as of this encounter Plan of Treatment Upcoming Encounters Date Type Specialty Care Team Description 04/04/2023 Office Visit Gynecology Obstetrics Reshma Rivas PA-C [address] [place] [address] 04/18/2023 Office Visit Gynecology Obstetrics Rosemary Angel CRNP [address] [place] [address] 04/28/2023 Office Visit Gynecology Obstetrics Vernon Smith MD [address] [place] [address] 05/12/2023 Office Visit Gynecology Obstetrics Anna Marie CRNP [address] [place] [address] 05/22/2023 Office Visit Gynecology Obstetrics Rosemary Angel CRNP [address] [place] [address] 05/26/2023 [facility] [address] [facility] [address] 06/02/2023 Office Visit Gynecology Obstetrics Vernon Smith MD [address] [place] [address] 06/09/2023 Office Visit Gynecology Obstetrics Vernon Smith MD [address] [place] [address] Pending Results Name Type Priority Associated Diagnoses Date /Time GESTATIONAL GLUCOSE TOLERANCE, 3 HOUR Lab Routine Impaired glucose in , antepartum 03/25/2023 9:05 AM EDT 100-G GESTATIONAL GLUCOSE, 1 HOUR Lab Routine Impaired glucose in , antepartum 03/25/2023 10:09 AM EDT 100-G GESTATIONAL GLUCOSE, 2 HOUR Lab Routine Impaired glucose in , antepartum 03/25/2023 11:15 AM EDT 100-G GESTATIONAL GLUCOSE, 3 HOUR Lab Routine Impaired glucose in , antepartum 03/25/2023 12:14 PM EDT Health Maintenance Due Date Last Done Comments Hepatitis B (1 of 3 - 3-dose series) 1988 COVID-19 Vaccine (#1) 06/19/1989 Depression Screening, Annual for Pts 12 and Over 2000 Influenza Vaccine (FLU shot) (#1) 2023 Pap Smear 10/23/2025 10/23/2022 Cervical Cancer Screening 10/24/2027 HPV/Co-Test 10/24/2027 10/23/2022 DTaP,Tdap,and Td Vaccines (2 - Td or Tdap) 03/21/2033 03/21/2023 Hepatitis C Screening Completed 10/23/2022 , 10/23/2022, 10/23/2022 GARDASIL-HPV IMMUNIZATION SERIES Aged Out No longer [...] Procedure Name Priority Date/Time Associated Diagnosis Comments 100-G GESTATIONAL GLUCOSE, FASTING Routine 03/25/2023 9:05 AM EDT Impaired glucose in , antepartum documented in this encounter Results * 100-G GESTATIONAL GLUCOSE, FASTING (03/25/2023 9:05 AM EDT) 100-g Gestational Glucose, Fasting 84 70 - 94 mg/dL 03/25/2023 10:35 AM EDT [facility] Blood Venous blood specimen / Unknown Venipuncture / Unknown 03/25/2023 9:05 AM EDT 03/25/2023 9:05 AM EDT Narrative [facility] - 03/25/2023 10:35 AM EDT Based on ACOG guideline, gestational diabetes mellitus is diagnosed when any of the following is met: Fasting is greater than or equal to 95 mg/dL 1 hour is greater than or equal to 180 mg/dL 2 hour is greater than or equal to 155 mg/dL 3 hour is greater than or equal to 140 mg/dL Anna [facility] BLOOD O RDERABLES [facility] [address] [place] [address] [place] [address] documented in this encounter Visit Diagnoses Diagnosis Impaired glucose in , antepartum Abnormal maternal glucose tolerance, antepartum documented in this encounter
--- OUTSIDE RECORDS SUMMARY | 2023-06-13 15:50 | External Medical Summary | Summary of Care ---
Author Name Unknown Organization [facility] Address [address] [place] [address] Phone [phone] Care Team Providers Care Cook Sauce Name Role Phone Unavailable Primary Care Provider Unavailabl e Encounter Details Date Type Department Care Team Description 05/08/2023 Nurse Only Gynecology/Obstetrics [facility] 132 [facility] [place] [address] Gw, Nurse Obgyn Injection 132 [facility] [place] [address] Allergies Active Allergy Reactions Severity Noted Date Comments Amoxicillin-Pot Clavulanate Hives 10/19/19 23 Latex Itching 10/23/2022 documented as of this encounter (statuses as of 05/08/2023) Medications Medication Sig Dispensed Refills Start Date End Date Status /Folic Acid Oral Tablet Take by mouth. Womens One A Day gummies- contains 800mcg Folic Acid. 0 Active Cetirizine HCl 10 MG Oral Tablet Take 1 Tablet by mouth in the morning. 0 Active documented as of this encounter (statuses as of 05/08/2023) Active Problems Problem Noted Date Supervision of other normal , a ntepartum 10/23/2022 Estimated Date of Delivery Comme nts Yes 06/09/2023 Based on last me nstrual period of 09/02/2022 (Exact Date) documented as of this encounter (statuses as of 05/08/2023) Immunizations Name Administration Dates Next Due SEASONAL INFLUENZA, PF, 6 M & Above, IM , (FLULAVAL or FLUZONE) 04/18/2023 TDAP (age 10 and older)(Boostrix) 03/21/2023 documented as of this encounter Social History Tobacco Use Types Packs/Day Years Used Date Smoking Tobacco: Never Smokeless Tobacco: Never Tobacco Cessation:Counseling Given: Not Answered Alcohol Use Standard Drinks/Week Comments Not Currently [...] Sign Reading Time Taken Comments Blood Pressure 126/70 05/08/2023 1:16 PM EDT Pulse - - Temperature - - Respiratory Rate - - Oxygen Saturation - - Inhaled Oxygen Concentration - - Weight - - Height - - Body Mass Index - - documented in this encounter Nursing Notes * Miriam Lomas RN - 05/08/2023 1:09 PM EDT Patient here for nurse visit BP check and urine check. Urine negative BP okay Denies ELIZABETH, increase in swelling, blurry vision, RUQ Patient advised to push fluids, call back with any new or worsening sx. Miriam Lomas RN documented in this encounter Plan of Treatment Upcoming Encounters Date Type Specialty Care Team Description 05/12/2023 Office Visit Gynecology Obstetrics Anna Marie CRNP [address] [place] [address] 05/22/2023 Office Visit Gynecology Obstetrics Rosemary Angel CRNP [address] [place] [address] 05/26/2023 Office Visit Gynecology Obstetrics Tana Zhao MD [address] [place] [address] 06/02/2023 Office Visit Gynecology Obstetrics Vernon Smith MD [address] [place] [address] 06/09/2023 Office Visit Gynecology Obstetrics Vernon Smith MD [address] [place] [address] Health Maintenance Due Date Last Done Comments [...] Comments URINALYSIS, POINT OF CARE (ENTER/EDIT) Routine 05/08/2023 Supervision of other normal , antepartum documented in this encounter Results * URINALYSIS, POINT OF CARE (ENTER/EDIT) (05/08/2023) Color, Urine Yellow Yellow or Light Yellow Clarity, Urine Clear Clear Glucose, Urine Negative Negative mg/dL Bilirubin, Urine Negative Negative Ketone, Urine Negative Negative mg/dL Specific Crystal, Urine 1.015 1.003 - 1.030 Blood, Urine Negative Negative pH, Urine 6.0 5.0 - 7.5 units Protein, Urine Negative Negative mg/dL Urobilinogen, Urine 0.2 0.2 - 1.0 mg/dL Nitrite, Urine Negative Negative Esterase, Urine Negative Negative Urine 05/08/2023 Vernon Smith MD LAB POINT OF CARE TE ST ENTER/EDIT ORDERABLES documented in this encounter Visit Diagnoses Diagnosis Supervision of other normal , antepartum- Primary documented in this encounter
--- OUTSIDE RECORDS SUMMARY | 2023-06-13 15:50 | External Medical Summary | Summary of Care ---
Author Name Unknown Organization [facility] Address [address] [place] [address] Phone [phone] Care Team Providers Care Nursing Program Coordinator Name Role Phone Unavailable Primary Care Provider Unavailabl e Reason for Visit * Reason Comments Return Visit Encounter Details Date Type Department Care Team Description 02/18/2023 Office Visit Gynecology/Obstetrics [facility] [address] [place] [address] Anna Marie CRNP [address] [place] [id number] Supervision of other normal , antepartum* Allergies Active Allergy Reactions Severity Noted Date Comments Amoxicillin-Pot Clavulanate Hives 10/19/19 23 Latex Itching 10/23/2022 documented as of this encounter (statuses as of 02/18/2023) Medications Medication Sig Dispensed Refills Start Date End Date Status /Folic Acid Oral Tablet Take by mouth. Womens One A Day gummies- contains 800mcg Folic Acid. 0 Active Cetirizine HCl 10 MG Oral Tablet Take 1 Tablet by mouth in the morning. 0 Active documented as of this encounter (statuses as of 02/18/2023) Active Problems Problem Noted Date Supervision of other normal , a ntepartum 10/23/2022 Estimated Date of Delivery Comme nts Yes 06/09/2023 Based on last me nstrual period of 09/02/2022 (Exact Date) documented as of this encounter (statuses as of 02/18/2023) Social History Tobacco Use Types Packs/Day Years [...] Sign Reading Time Taken Comments Blood Pressure 126/62 02/18/2023 8:48 AM EDT Pulse - - Temperature - - Respiratory Rate - - Oxygen Saturation - - Inhaled Oxygen Concentration - - Weight 88 kg (194 lb) 02/18/2023 8:48 AM EDT Height - - Body Mass Index 33.3 01/20/2023 8:03 AM EDT documented in this encounter Progress Notes * ANNETTE Lujan - 02/18/2023 8:52 AM EDT 24w 1d Baby is moving. No bleeding/ctx. Underwear wet at times, hx leaky bladder. Has not been wearing a pad. Advised to monitor. Discussed labs for next visit. Continues to play tennis - discussed increased risk of ligament injury and abdominal trauma in . Ensure adequate hydration. Discussed LE edema. Reviewed CBE classes. Return in 4 weeks. ANNETTE Selby documented in this encounter Nursing Notes * Velma Morales LPN - 02/18/2023 8:48 AM EDT 24w1d Denies vaginal bleeding/rom + movement Still having some nausea Underwear wet at times- hx leaky bladder- thinking maybe urine but not 100% sure. bilat feet swelling- rt foot worse- typically goes down at night and with increased water intake. documented in this encounter Plan of Treatment Upcoming Encounters Date Type Specialty Care Team Description 03/21/2023 Laboratory [facility] [address] [place] [address] 03/21/2023 Office Visit Gynecology Obstetrics Reshma Rivas PA-C [address] [place] [address] Scheduled Orders Name Type Priority Associated Diagnoses Orde r Schedule 50-G GESTATIONAL GLUCOSE, 1 HOUR Lab Routine Supervision of other normal , antepartum Expected: 03/04/2023 (Approximate), Expires: 02/19/2024 SYPHILIS ANTIBODY SCREEN WITH REFLEX TO RPR Lab Routine Supervision of other normal , antepartum Expected: 03/04/2023 (Approximate), Expires: 02/19/2024 CBC WITH WBC DIFFERENTIAL AND ANEMIA REFLEX WORKUP Lab Routine Supervision of other normal , antepartum Expected: 03/04/2023 (Approximate), Expires: 02/19/2024 Health Maintenance Due Date Last Done Comments Hepatitis B (1 of 3 - 3-dose series) 1988 COVID-19 Vaccine (#1) 06/19/1989 Depression Screening, Annual for Pts 12 and Over 2000 DTaP,Tdap,and Td Vaccines (1 - Tdap) 12/18/2007 Influenza Vaccine (FLU shot) (#1) 2023 Pap Smear 10/24/2027 10/23/2022 Hepatitis C Screening Completed 10/23/2022 , 10/23/2022, [...]
--- OUTSIDE RECORDS SUMMARY | 2023-06-13 15:50 | External Medical Summary | Summary of Care ---
Author Name Unknown Organization [facility] Address [address] [place] [address] Phone [phone] Care Team Providers Care Pet Sitting Name Role Phone Unavailable Primary Care Provider Unavailabl e Reason for Visit * Reason Onset Date Comments Return Visit Medication Administration 04/18/2023 Flu an d/or Pneumo Inj Encounter Details Date Type Department Care Team Description 04/18/2023 Office Visit Gynecology/Obstetrics [facility] [address] [place] [address] Rosemary Angel CRNP [address] [place] [id number] Supervision of other normal , antepartum*; Need for prophylactic vaccination and inoculation against influenza Allergies Active Allergy Reactions Severity Noted Date Comments Amoxicillin-Pot Clavulanate Hives 10/19/19 23 Latex Itching 10/23/2022 documented as of this encounter (statuses as of 04/18/2023) Medications Medication Sig Dispensed Refills Start Date End Date Status /Folic Acid Oral Tablet Take by mouth. Womens One A Day gummies- contains 800mcg Folic Acid. 0 Active Cetirizine HCl 10 MG Oral Tablet Take 1 Tablet by mouth in the morning. 0 Active documented as of this encounter (statuses as of 04/18/2023) Active Problems Problem Noted Date Supervision of other normal , a ntepartum 10/23/2022 Estimated Date of Delivery Comme nts Yes 06/09/2023 Based on last me nstrual period of 09/02/2022 (Exact Date) documented as of this encounter (statuses as of 04/18/2023) Immunizations Name Administration Dates Next Due Seasonal [...] Sign Reading Time Taken Comments Blood Pressure 120/78 04/18/2023 10:50 AM EDT Pulse - - Temperature - - Respiratory Rate - - Oxygen Saturation - - Inhaled Oxygen Concentration - - Weight 93 kg (205 lb) 04/18/2023 10:50 AM EDT Height 162.6 cm (5' 4") 04/18/2023 10:50 AM EDT Body Mass Index 35.19 04/18/2023 10:50 AM EDT documented in this encounter Progress Notes * ANNETTE Chiu - 04/18/2023 11:35 AM EDT 32w4d No concerns. Baby moving well. No bleeding or LOF. Flu vaccine today. ANNETTE Chiu * Katrin Suarez LPN - 04/18/2023 10:55 AM EDT 32w4d Pt denies any concerns, flu shot today documented in this encounter Plan of Treatment Upcoming Encounters Date Type Specialty Care Team Description 04/28/2023 Office Visit Gynecology Obstetrics Vernon Smith MD [address] [place] [address] 05/12/2023 Office Visit Gynecology Obstetrics Anna Marie CRNP [address] [place] [address] 05/22/2023 Office Visit Gynecology Obstetrics Rosemary Angel CRNP [address] [place] [address] 05/26/2023 Office Visit Gynecology Obstetrics Tana Zhao MD [address] [place] [address] [place] [address] 06/02/2023 Office Visit Gynecology Obstetrics Vernon Smith MD [address] [place] [address] 06/09/2023 Office Visit Gynecology Obstetrics Vernon Smith MD [address] [place] [address] Health Maintenance Due Date Last Done Comments [...] Supervision of other normal , antepartum- Primary Need for prophylactic vaccination and inoculation against influenza documented in this encounter
--- OUTSIDE RECORDS SUMMARY | 2023-06-13 15:50 | External Medical Summary ---
Author Name Unknown Address Unknown Organization [id number]:[facility] - [address] [place] [id number] Laboratory Report Ordering Provider Test Date Status KHOA STEVE 03/21/2023 10:11:29 Final Observation Date Value Abnormality Reference (Units ) Status Glucose [Moles/volume] in Serum or Plasma --1 hour post 50 g glucose PO 03/21/2023 10:11:29 150 Above high normal 70-129 (mg/dL) Final Performing Location [facility] 0 - [address] [place] [address]
--- OUTSIDE RECORDS SUMMARY | 2023-06-13 15:50 | External Medical Summary | Summary of Care ---
Author Name Unknown Organization [facility] Address [address] [place] [facility] [place] [address] Phone [phone] Care Team Providers Care Brooch And Bracelet Maker Name Role Phone Unavailable Primary Care Provider Unavailabl e Reason for Visit * Reason Comments Return Visit Encounter Details Date Type Department Care Team Description 04/04/2023 Office Visit Gynecology/Obstetrics [facility] [address] [place] [address] Reshma Rivas PA-C [address] [place] [address] Supervision of other normal , antepartum* Allergies Active Allergy Reactions Severity Noted Date Comments Amoxicillin-Pot Clavulanate Hives 10/19/19 23 Latex Itching 10/23/2022 documented as of this encounter (statuses as of 04/04/2023) Medications Medication Sig Dispensed Refills Start Date End Date Status /Folic Acid Oral Tablet Take by mouth. Womens One A Day gummies- contains 800mcg Folic Acid. 0 Active Cetirizine HCl 10 MG Oral Tablet Take 1 Tablet by mouth in the morning. 0 Active documented as of this encounter (statuses as of 04/04/2023) Active Problems Problem Noted Date Supervision of other normal , a ntepartum 10/23/2022 Estimated Date of Delivery Comme nts Yes 06/09/2023 Based on last me nstrual period of 09/02/2022 (Exact Date) documented as of this encounter (statuses as of 04/04/2023) Immunizations Name Administration Dates Next Due TDAP [...] Sign Reading Time Taken Comments Blood Pressure 126/64 04/04/2023 9:21 AM EDT Pulse - - Temperature - - Respiratory Rate - - Oxygen Saturation - - Inhaled Oxygen Concentration - - Weight 92.5 kg (204 lb) 04/04/2023 9:21 AM EDT Height 162.6 cm (5' 4") 04/04/2023 9:21 AM EDT Body Mass Index 35.02 04/04/2023 9:21 AM EDT documented in this encounter Progress Notes * Reshma Rivas PA-C - 04/04/2023 9:30 AM EDT 30w4d Doing well, having some heartburn and nausea at night. Managing with TUMS before bedtime and eatingbefore bed to help with nausea. Reviewed PRN Pepcid QHS if needed. Passed 3 hour glucose testing. Desires flu vaccine, wants with next visit. Pt states COVID-19 goingaround at work. She is masking to be safe. RTC in 2 weeks Reshma Rivas PA-C * Mildred Mallory LPN - 04/04/2023 9:21 AM EDT 30w4d Nausea, heartburn- manageable. documented in this encounter Plan of Treatment Upcoming Encounters Date Type Specialty Care Team Description 04/18/2023 Office Visit Gynecology Obstetrics Rosemary Angel CRNP [address] [place] [address] 04/28/2023 Office Visit Gynecology Obstetrics Vernon Smith MD [address] [place] [address] 05/12/2023 Office Visit Gynecology Obstetrics Anna Marie CRNP [address] [place] [address] 05/22/2023 Office Visit Gynecology Obstetrics Rosemary Angel CRNP [address] [place] [address] 05/26/2023 Office Visit Gynecology Obstetrics Tana Zhao MD [address] [place], [place] [address] [address] 06/02/2023 Office Visit Gynecology Obstetrics Vernon Smith MD [address] [place] [address] 06/09/2023 Office Visit Gynecology Obstetrics Vernon Smith MD [address] [place] [address] Health Maintenance Due Date Last Done Comments [...]
--- OUTSIDE RECORDS SUMMARY | 2023-06-13 15:50 | External Medical Summary ---
Author Name Unknown Address Unknown Organization K01:[facility] [address] [place] [address] Laboratory Report Ordering Provider Test Date Status EVI,BACKER 03/21/2023 10:11:29 Final Observation Date Value Abnormality Reference (Units ) Status WBC, Total 03/21/2023 10:11:29 8.97 4.00-10.8 0 (K/uL) Final RBC 03/21/2023 10:11:29 3.66 3.85-5.15 (M/uL) Final Hemoglobin 03/21/2023 10:11:29 10.9 Below low normal 12 .0-15.3 (g/dL) Final Anemia reflex testing trigge rs on a HGB < 12.0 for Females and HGB < 13.0 for Males in accordance with the WHO Anemia Guidelines
Anemia reflex testing triggers on a HGB < 12.0 for Females and HGB < 13.0 for Males in accordance with the WHO Anemia Guidelines HCT 03/21/2023 10:11:29 34.2 Below low normal 36. 0-45.2 (%) Final MCV 03/21/2023 10:11:29 93.4 81.5-97.5 (fL) Final MCH 03/21/2023 10:11:29 29.8 27.0-34.0 (pg) Final MCHC 03/21/2023 10:11:29 31.9 32.0-36.0 (g/dL) Final RDW 03/21/2023 10:11:29 12.9 11.5-15.5 (%) Final Platelets 03/21/2023 10:11:29 272 140-400 (K /uL) Final MPV 03/21/2023 10:11:29 10.5 6.6-11.1 ( fL) Final Nucleated erythrocytes/100 leukocytes [Ratio] in Blood by Automated count 03/21/2023 10:11:29 0 <=0 (/100 WBCs) Final Performing Location [facility] - [address] [facility] [address]
--- OUTSIDE RECORDS SUMMARY | 2023-06-13 15:50 | External Medical Summary | Summary of Care ---
Author Name Unknown Organization [facility] Address [address] [place] [address] Phone [phone] Care Team Providers Care Crm Architect Name Role Phone Unavailable Primary Care Provider Unavailabl e Reason for Visit * Reason Comments Return Visit Encounter Details Date Type Department Care Team Description 03/21/2023 Office Visit Gynecology/Obstetrics [facility] [address] [place] [address] Reshma Rivas PA-C [address] [place] [address] Supervision of other normal , antepartum*; Need for wuazraicnp-hxlvbar-jgl tussis (Tdap) vaccine Allergies Active Allergy Reactions Severity Noted Date Comments Amoxicillin-Pot Clavulanate Hives 10/19/19 23 Latex Itching 10/23/2022 documented as of this encounter (statuses as of 03/21/2023) Medications Medication Sig Dispensed Refills Start Date End Date Status /Folic Acid Oral Tablet Take by mouth. Womens One A Day gummies- contains 800mcg Folic Acid. 0 Active Cetirizine HCl 10 MG Oral Tablet Take 1 Tablet by mouth in the morning. 0 Active documented as of this encounter (statuses as of 03/21/2023) Active Problems Problem Noted Date Supervision of other normal , a ntepartum 10/23/2022 Estimated Date of Delivery Comme nts Yes 06/09/2023 Based on last me nstrual period of 09/02/2022 (Exact Date) documented as of this encounter (statuses as of 03/21/2023) Immunizations Name Administration Dates Next Due TDAP [...] Sign Reading Time Taken Comments Blood Pressure 128/74 03/21/2023 9:10 AM EDT Pulse - - Temperature - - Respiratory Rate - - Oxygen Saturation - - Inhaled Oxygen Concentration - - Weight 90.7 kg (200 lb) 03/21/2023 9:10 AM EDT Height 162.6 cm (5' 4") 03/21/2023 9:10 AM EDT Body Mass Index 34.33 03/21/2023 9:10 AM EDT documented in this encounter Progress Notes * Reshma Rivas PA-C - 03/21/2023 9:21 AM EDT 28w4d Denies concerns. Completing third tri labs today. Reviewed [facility], call if concerns for <10 movements in 2 hrs. She has been doing these and no concerns. Denies bleeding/leaking/contractions. Counseled on Tdap, accepts. RTC in 2 weeks Reshma Rivas PA-C documented in this encounter Nursing Notes * Mildred Mallory LPN - 03/21/2023 9:33 AM EDT 28w4d Denies concerns. Completing labs today. Would like TDAP. Patient here for latex free TDAP injection. Patient doing well no complaints. Injection given IM asordered. Patient tolerated well. Patient to follow up as directed. Patient instructed to call if any complications. Patient verbalized understanding of instructions given and her follow up appt for [place]. Injection site: Left Deltoid Medication Source: Dispensed stock medication documented in this encounter Plan of Treatment Upcoming Encounters Date Type Specialty Care Team Description 04/04/2023 Office Visit Gynecology Obstetrics Reshma Rivas PA-C [address] [place] [address] 04/18/2023 Office Visit Gynecology Obstetrics Rosemary Angel CRNP [address] [place] [address] 04/28/2023 Office Visit Gynecology Obstetrics Vernon Smith MD [address] [place] [address] 05/12/2023 Office Visit Gynecology Obstetrics Anna Marie CRNP [address] [place] [address] 05/22/2023 Office Visit Gynecology Obstetrics Rosemary Angel CRNP [address] [place] [address] 05/26/2023 Office Visit Gynecology Obstetrics Tana Zhao MD [address] [place] [address] [place] [address] 06/02/2023 Office Visit Gynecology Obstetrics Vernon Smith MD [address] [place] [address] 06/09/2023 Office Visit Gynecology Obstetrics Vernon Smith MD [address] [place] [address] Health Maintenance Due Date Last Done Comments [...] other normal , antepartum- Primary Need for pabtfknocq-zhcqyat-hqarxilyb (Tdap) vaccine Need for prophylactic vaccination with combined bpyhxvkeoa-vbeyoia-xahnvdxnq (DTP) vaccine documented in this encounter
--- OUTSIDE RECORDS SUMMARY | 2023-06-13 15:50 | External Medical Summary ---
Author Name Unknown Address Unknown Organization [id number]:[facility] - [address] [place] [address] Laboratory Report Ordering Provider Test Date Status KHOA STEVE 03/21/2023 10:11:29 Final Observation Date Value Abnormality Reference (Units ) Status Ferritin 03/21/2023 10:11:29 15 13-150 (ng /mL) Final Performing Location [facility] - [address] [place] [address]
--- OUTSIDE RECORDS SUMMARY | 2023-06-13 15:50 | External Medical Summary ---
Author Name Unknown Address Unknown Organization [id number]:[facility] [place] [address] [facility] [address] Laboratory Report Ordering Provider Test Date Status KHOA STEVE 03/21/2023 10:11:29 Final Observation Date Value Abnormality Reference (Units ) Status Folic Acid 03/21/2023 10:11:29 >20.0 >4.5 (ng/ mL) Final Performing Location [facility] - [address] [facility] [address]
--- OUTSIDE RECORDS SUMMARY | 2023-06-13 15:50 | External Medical Summary | Summary of Care ---
Author Name Unknown Organization [facility] Address [address] [place] [address] Phone [phone] Care Team Providers Care Pilot Name Role Phone Unavailable Primary Care Provider Unavailabl e Reason for Visit * Reason Comments Return Visit Encounter Details Date Type Department Care Team Description 05/12/2023 Office Visit [facility] [address] [place] [address] Anna Marie CRNP [address] [place] [address] Supervision of other normal , antepartum*; Antepartum anemia complicating ; Localized swelling of right foot; Uterine size date discrepancy Allergies Active Allergy Reactions Severity Noted Date Comments Amoxicillin-Pot Clavulanate Hives 10/19/19 23 Latex Itching 10/23/2022 documented as of this encounter (statuses as of 05/12/2023) Medications Medication Sig Dispensed Refills Start Date [...] as of this encounter (statuses as of 05/12/2023) Active Problems Problem Noted Date Antepartum anemia complicating 05/12/2023 Supervision of other normal , a ntepartum 10/23/2022 Estimated Date of Delivery Comme nts Yes 06/09/2023 Based on last me nstrual period of 09/02/2022 (Exact Date) documented as of this encounter (statuses as of 05/12/2023) Immunizations Name Administration Dates Next Due SEASONAL [...] at Date Recorded Female 10/15/2022 1:39 PM EDT Job Start Date Occupation Industry Not on file Not on file Not on file documented as of this encounter Last Filed Vital Signs Vital Sign Reading Time Taken Comments Blood Pressure 126/72 05/12/2023 8:49 AM EDT Pulse - - Temperature - - Respiratory Rate - - Oxygen Saturation - - Inhaled Oxygen Concentration - - Weight 96.2 kg (212 lb) 05/12/2023 8:49 AM EDT Height - - Body Mass Index 36.39 04/28/2023 8:52 AM EDT documented in this encounter Progress Notes * ANNETTE Lujan - 05/12/2023 8:49 AM EDT 36w0d Baby moving normally. Some BH ctx, not consistent. Occasional scant brown discharge. No red blood/leaking fluid. Plans to use condoms PP. Reports swelling in R foot - no redness/warmth. Consistent throughout but increasing. +1 pitting edema R foot only, no warmth/redness/pain. Will get doppler study to r/o VTE. S>D, schedule growth u/s. GBS today. Return in 1 week. CBC today. Looping Machine Operator Documentation Provider requested business english instructor. Name of business english instructor: Mildred MURO. ANNETTE Selby * Velma Morales LPN - 05/12/2023 8:48 AM EDT 36w0d Denies vaginal bleeding/rom [place] cortés Swelling Rt foot No new concerns documented in this encounter Plan of Treatment Upcoming Encounters Date Type Specialty Care Team Description 05/12/2023 Laboratory Laboratory [facility] [address] [place] [address] Antepartum anemia complicating 05/12/2023 Imaging Radiology Localized swel ling of right foot 05/14/2023 Imaging Radiology 05/22/2023 Office Visit Gynecology Obstetrics Rosemary Angel CRNP [address] [place] [address] 05/26/2023 Office Visit Gynecology Obstetrics Tana Zhao MD [address] [place], [place] [address] [address] 06/02/2023 Office Visit Gynecology Obstetrics Vernon Smith MD [address] [place] [address] 06/09/2023 Office Visit Gynecology Obstetrics Vernon Smith MD [address] [place] [address] Pending Results Name Type Priority Associated Diagnoses Date /Time GROUP B STREP CULTURE/PCR Lab Routine Supervision of other normal , antepartum 05/12/2023 9:06 AM EDT CBC Lab Routine Antepartum anemia complicating 05/12/2023 9:17 AM EDT Scheduled Orders Name Type Priority Associated Diagnoses Orde r Schedule CBC Lab Routine Antepartum anemia complicating Expected: 05/12/2023 (Approximate), Expires: 05/12/2024 VASC DUPLEX VENOUS LE UNILAT Medical Imaging Routine Localized swelling of right foot Expected: 05/12/2023 (Approximate), Expires: 06/12/2024 US PREG FOLLOW-UP EACH FETUS Medical Imaging Routine Supervision of other normal , antepartum Uterine size date discrepancy Expected: 05/12/2023 (Approximate), Expires: 06/12/2024 Health Maintenance Due Date Last Done Comments [...] antepartum- Primary Antepartum anemia complicating Anemia, antepartum Localized swelling of right foot Uterine size date discrepancy Uterine size date discrepancy, antepartum condition or complication Localized swelling of right foot Antepartum anemia complicating Anemia, antepartum documented in this encounter
--- OUTSIDE RECORDS SUMMARY | 2023-06-13 15:50 | External Medical Summary | Summary of Care ---
Author Name Unknown Organization [facility] Address [address] [place] [address] Phone [phone] Care Team Providers Care Hide Sorter Name Role Phone Unavailable Primary Care Provider Unavailabl e Reason for Visit * Reason Onset Date Comments Test Results 03/21/2023 Encounter Details Date Type Department Care Team Description 03/21/2023 Telephone [facility] [address] [place] [address] Anna Marie CRNP [address] [facility] [place] [address] Test Results Allergies Active Allergy Reactions Severity Noted Date Comments Amoxicillin-Pot Clavulanate Hives 10/19/19 23 Latex Itching 10/23/2022 documented as of this encounter (statuses as of 03/26/2023) Medications Medication Sig Dispensed Refills Start Date End Date Status /Folic Acid Oral Tablet Take by mouth. Womens One A Day gummies- contains 800mcg Folic Acid. 0 Active Cetirizine HCl 10 MG Oral Tablet Take 1 Tablet by mouth in the morning. 0 Active documented as of this encounter (statuses as of 03/26/2023) Active Problems Problem Noted Date Supervision of other normal , a ntepartum 10/23/2022 Estimated Date of Delivery Comme nts Yes 06/09/2023 Based on last me nstrual period of 09/02/2022 (Exact Date) documented as of this encounter (statuses as of 03/26/2023) Immunizations Name Administration Dates Next Due TDAP [...] on file documented as of this encounter Miscellaneous Notes * Telephone Encounter - Velma Morales LPN - 03/24/2023 9:03 AM EDT Spoke to pt, she states current does not have iron. I did advise pt to either get prenatalwith iron or to continuous pickling line pickler helper iron supplement and take daily with current . Pt verbalized understanding. * Telephone Encounter - SILAS Nash - 03/24/2023 8:45 AM EDT Apt scheduled * Telephone Encounter - ANNETTE Chiu - 03/24/2023 8:13 AM EDT Covering for Jasvir: pt's labs show mild anemia. Can you ask her if she is taking a PNV with iron? If not, she needs to start. If she is, let me know and I"ll give further advice. * Telephone Encounter - Helen Berrios LPN - 03/21/2023 11:49 AM EDT Spoke with pt she verbalized understanding. Please call pt to schedule [id number] * Telephone Encounter - ANNETTE Lujan - 03/21/2023 11:35 AM EDT Elevated 1 hr glucose - please notify pt and have her schedule 3 hr GTT. Needs to fast prior. Thanks! ANNETTE Selby documented in this encounter Plan of Treatment Upcoming Encounters Date Type Specialty Care Team Description 04/04/2023 Office Visit Gynecology Obstetrics Reshma Rivas PA-C [address] [place] [address] 04/18/2023 Office Visit Gynecology Obstetrics Rosemary Angle CRNP [address] [place] [address] 04/28/2023 Office Visit Gynecology Obstetrics Vernon Smith MD [address] [place] [address] 05/12/2023 Office Visit Gynecology Obstetrics Anna Marie CRNP [address] [place] [address] 05/22/2023 Office Visit Gynecology Obstetrics Rosemary Angel CRNP [address] [place] [address] 05/26/2023 Office Visit Gynecology Obstetrics Tana Zhao MD [address] [place] [address] [place] [address] 06/02/2023 Office Visit Gynecology Obstetrics Vernon Smith MD [address] [place] [address] 06/09/2023 Office Visit Gynecology Obstetrics Vernon Smith MD [address] [place] [address] Health Maintenance Due Date Last Done Comments [...] as of this encounter Visit Diagnoses Diagnosis Impaired glucose in , antepartum- Primary Abnormal maternal glucose tolerance, antepartum documented in this encounter
--- OUTSIDE RECORDS SUMMARY | 2023-06-13 15:50 | External Medical Summary | Summary of Care ---
Author Name Unknown Organization [facility] Address [address] [place] [address] Phone [phone] Care Team Providers Care Brass Wind Instruments Tube Bender Name Role Phone Unavailable Primary Care Provider Unavailabl e Reason for Visit * Reason Comments Return Visit Encounter Details Date Type Department Care Team Description 05/12/2023 [facility] [address] [place] [address] Anna Marie CRNP [address] [place] [address] Supervision of other normal , antepartum*; Antepartum [...] today. Return in 1 week. CBC today. Collaborative Teacher Documentation Provider requested tinner automatic. Name of tinner automatic: Mildred MURO. ANNETTE Selby * Velma Morales LPN - 05/12/2023 8:48 AM EDT 36w0d Denies vaginal bleeding/rom [place] cortés Swelling Rt foot No new concerns documented in this encounter Plan of Treatment Upcoming Encounters Date Type Specialty Care Team Description 05/22/2023 Office Visit Gynecology Obstetrics Rosemary Angel CRNP [address] [place] [address] 05/26/2023 Office Visit [facility]necology Obstetrics [facility] [address] [facility] [address] 06/02/2023 Office Visit Gynecology Obstetrics Vernon Smith MD [address] [place] [address] 06/09/2023 Office Visit Gynecology Obstetrics Vernon Smith MD [address] [place] [address] Pending Results Name Type Priority Associated Diagnoses Date /Time GROUP B STREP CULTURE/PCR Lab Routine Supervision of other normal , antepartum 05/12/2023 9:06 AM EDT Scheduled Orders Name Type Priority [...] size date discrepancy, antepartum condition or complication documented in this encounter
--- OUTSIDE RECORDS SUMMARY | 2023-06-13 15:50 | External Medical Summary ---
Author Name Unknown Address Unknown Organization K0G[facility] [address] [place] [address] Laboratory Report Ordering Provider Test Date Status EVIBACKER 03/25/2023 11:15:32 Final Observation Date Value Abnormality Reference (Units ) Status Glucose, 2-hr post glucose challenge 03/25/2023 11:15:32 161 Above high normal 70-154 (mg/dL) Final Performing Location LABORATORY [facility] 57-1 0 - [address] [place] [address]
--- OUTSIDE RECORDS SUMMARY | 2023-06-13 15:50 | External Medical Summary ---
Author Name Unknown Address Unknown Organization K0G:[facility] - [address] [place] [address] Laboratory Report Ordering Provider Test Date Status EVI,KHOA 03/25/2023 10:09:53 Final Observation Date Value Abnormality Reference (Units ) Status Glucose [Mass/volume] in Serum or Plasma --1 hour post dose glucose 03/25/2023 10:09:53 154 70-179 (mg/dL) Final Performing Location [facility] 0 - [address] [place] [address]
--- OUTSIDE RECORDS SUMMARY | 2023-06-13 15:50 | External Medical Summary ---
Author Name Unknown Address Unknown Organization K01:[facility] [place] [address] Laboratory Report Ordering Provider Test Date Status KHOA STEVE 03/21/2023 10:11:29 Final Observation Date Value Abnormality Reference (Units ) Status Retic, % (auto) 03/21/2023 10:11:29 2.10 Above high normal 0.80-1.90 (%) Final Reticulocytes, Absolute 03/21/2023 10:11:29 76.0 31.3-100.1 (K/uL) Final Reticulocyte fraction, immature 03/21/2023 10:11:29 23.7 Above high normal 2.5-20.6 (%) Final Reticulocyte HGB 03/21/2023 10:11:29 30.7 29.7-37.4 (pg) Final Performing Location LABORATORY [facility] - [address] [facility] [address]
--- OUTSIDE RECORDS SUMMARY | 2023-06-13 15:50 | External Medical Summary ---
Author Name Unknown Address Unknown Organization K0G:LABORATORY [facility] 57-10 - [address] [place] [address] Laboratory Report Ordering Provider Test Date Status KHOA STEVE 05/12/2023 09:17:27 Final Observation Date Value Abnormality Reference (Units ) Status WBC, Total 05/12/2023 09:17:27 9.89 4.00-10.8 0 (K/uL) Final RBC 05/12/2023 09:17:27 3.95 3.85-5.15 (M/uL) Final Hemoglobin 05/12/2023 09:17:27 11.8 Below low normal 12 .0-15.3 (g/dL) Final HCT 05/12/2023 09:17:27 35.2 Below low normal 36. 0-45.2 (%) Final MCV 05/12/2023 09:17:27 89.1 81.5-97.5 (fL) Final MCH 05/12/2023 09:17:27 29.9 27.0-34.0 (pg) Final MCHC 05/12/2023 09:17:27 33.5 32.0-36.0 (g/dL) Final RDW 05/12/2023 09:17:27 13.8 11.5-15.5 (%) Final Platelets 05/12/2023 09:17:27 258 140-400 (K /uL) Final MPV 05/12/2023 09:17:27 10.0 6.6-11.1 ( fL) Final Performing Location LABORATORY [facility] 57-[address] 0 - [address] [place] [address]
--- OUTSIDE RECORDS SUMMARY | 2023-06-13 15:50 | External Medical Summary | Summary of Care ---
Author Name Unknown Organization [facility] Address [address] [place] [address] Phone [phone] Care Team Providers Care Alterations Tailor Name Role Phone Unavailable Primary Care Provider Unavailabl e Reason for Visit * Reason Comments Outpatient Testing Encounter Details Date Type Department Care Team Description 03/21/2023 Laboratory Laboratory, [facility] [address] [place] [address] [facility] [address] [place] [address] Supervision of other normal , antepartum Allergies Active Allergy Reactions Severity [...] Obstetrics Reshma Rivas PA-C [address] [place] [address] 04/18/2023 Office Visit Gynecology Obstetrics Rosemary Angel CRNP [address] [place] [address] 04/28/2023 Office Visit Gynecology Obstetrics Vernon Smith MD [address] [place] [address] 05/12/2023 Office Visit Gynecology Obstetrics Anna Marie CRNP [address] [place] [address] 05/22/2023 Office Visit Gynecology Obstetrics Rosemary Angel CRNP [address] [place] [address] 05/26/2023 Office Visit [facility]necology Obstetric[facility] [address] [facility] [address] 06/02/2023 Office Visit Gynecology Obstetrics Vernon Smith MD [address] [place] [address] 06/09/2023 Office Visit Gynecology Obstetrics Vernon Smith MD [address] [place] [address] Pending Results Name Type Priority Associated Diagnoses Date /Time 50-G GESTATIONAL GLUCOSE, 1 HOUR Lab Routine Supervision of other normal , antepartum 03/21/2023 10:11 AM EDT SYPHILIS ANTIBODY SCREEN WITH REFLEX TO RPR Lab Routine Supervision of other normal , antepartum 03/21/2023 10:11 AM EDT CBC WITH WBC DIFFERENTIAL AND ANEMIA REFLEX WORKUP Lab Routine Supervision of other normal , antepartum 03/21/2023 10:11 AM EDT SYPHILIS ANTIBODY SCREEN Lab Routine Supervision of other normal , antepartum 03/21/2023 10:11 AM EDT ANEMIA CBC Lab Routine Supervision of other normal , antepartum 03/21/2023 10:11 AM EDT DIFFERENTIAL, AUTOMATED Lab Routine Supervision of other normal , antepartum 03/21/2023 10:11 AM EDT ANEMIA REFLEX CHEMISTRY HOLD Lab Routine Supervision of other normal , antepartum 03/21/2023 10:11 AM EDT Health Maintenance Due Date Last Done [...] Diagnoses Diagnosis Supervision of other normal , antepartum documented in this encounter
--- OUTSIDE RECORDS SUMMARY | 2023-06-13 15:50 | External Medical Summary | Summary of Care ---
Author Name Unknown Organization [facility] Address [address] [place] [address] Phone [phone] Care Team Providers Care Pattern Chain Maker Supervisor Name Role Phone Unavailable Primary Care Provider Unavailabl e Reason for Visit * Reason Comments Return Visit Encounter Details Date Type Department Care Team Description 05/12/2023 [facility] [address] [place] [address] Anna Marie CRNP [address] [place] [id number] Supervision of other normal , antepartum*; Antepartum [...] today. Return in 1 week. CBC today. Tractor Mechanic Documentation Provider requested legal investigator. Name of legal investigator: Mildred MURO. ANNETTE Selby * Velma Morales LPN - 05/12/2023 8:48 AM EDT 36w0d Denies vaginal bleeding/rom Mason cortés Swelling Rt foot No new concerns documented in this encounter Plan of Treatment Upcoming Encounters Date Type Specialty Care Team Description 05/14/2023 Imaging Radiology 05/22/2023 Office Visit Gynecology Obstetrics Rosemary Angel CRNP [address] [place] [id number] 05/26/2023 Office Visit Gynecology Obstetrics Tana Zhao MD [address] [place], [place] [address] [address] 06/02/2023 Office Visit Gynecology Obstetrics Vernon Smith MD [address] [place] [phone] 06/09/2023 Office Visit Gynecology Obstetrics Vernon Smith MD [address] [place] [phone] Pending Results Name Type Priority Associated Diagnoses Date /Time GROUP B STREP CULTURE/PCR Lab Routine Supervision of other normal , antepartum 05/12/2023 9:06 AM EDT Scheduled Orders Name Type Priority Associated Diagnoses Orde r Schedule US PREG FOLLOW-UP EACH FETUS Medical Imaging [...] Not on filedocumented as of this encounter Results * [facility] DUPLEX VENOUS LE UNILAT (05/12/2023 10:03 AM EDT) Anatomical Region Laterality Modality Lower Extremity, Vascular Ultras ound Impressions 05/12/2023 10:19 AM EDT : Right lower extremity with no evidence of acute deep venous thrombosis. Narrative 05/12/2023 10:19 AM EDT VASCULAR LAB RESULTS DATE OF EXAM: 05/12/23 PRESENTING CONDITIONS: Localized swelling, mass and lump, right lower limb This is an interpretation of an exam performed at [facility] Immediately before proceeding with the vascular lab procedure reported below, the identity of the patient, the correct exam and the correct procedural site were verified. PHYSICIAN REPORT: Lower Extremity Venous Duplex Examination Color flow Doppler, spectral analysis, and transducer compression techniques were applied during this ultrasound image examination. RIGHT LOWER EXTREMITY On duplex examination, the right common femoral vein, the sapheno-femoral junction, the femoral vein in the thigh and popliteal vein are all free of internal echoes and demonstrate normal transducer compressibility during méndez scale imaging and normal respiratory and augmentation response during Doppler interrogation. The posterior tibial veins and peroneal veins demonstrate no evidence of thrombosis. The contralateral common femoral vein is patent and free of internal echoes. Anna BRYANT RAD VASCULA R * (ABNORMAL) CBC (05/12/2023 9:17 AM EDT) [facility] Signature WBC 9.89 4.00 - 10.80 K/uL 05/12/2023 9:51 AM EDT [facility] RBC 3.95 3.85 - 5.15 M/uL 05/12/2023 9:51 AM EDT [facility] HGB 11.8(L) 12.0 - 15.3 g/dL 05/12/2023 9:51 AM EDT [facility] HCT 35.2(L) 36.0 - 45.2 % 05/12/2023 9:51 AM EDT [facility] MCV 89.1 81.5 - 97.5 fL 05/12/2023 9:51 AM EDT [facility] MCH 29.9 27.0 - 34.0 pg 05/12/2023 9:51 AM EDT [facility] MCHC 33.5 32.0 - 36.0 g/dL 05/12/2023 9:51 AM EDT [facility] RDW 13.8 11.5 - 15.5 % 05/12/2023 9:51 AM EDT [facility] PLT 258 140 - 400 K/uL 05/12/2023 9:51 AM EDT [facility] MPV 10.0 6.6 - 11.1 fL 05/12/2023 9:51 AM EDT [facility] Blood Venous blood specimen / Unknown Venipuncture / Unknown 05/12/2023 9:17 AM EDT 05/12/2023 9:17 AM EDT Anna BRYANT LAB BLOOD O RDERABLES [facility] [address] [place] [address] documented in this encounter Visit Diagnoses Diagnosis Supervision of other normal , antepartum- Primary Antepartum anemia complicating Anemia, antepartum Localized swelling of right foot Uterine size date discrepancy Uterine size date discrepancy, antepartum condition or complication Localized swelling of right foot documented in this encounter
--- OUTSIDE RECORDS SUMMARY | 2023-06-13 15:50 | External Medical Summary | Summary of Care ---
Author Name Unknown Organization [facility] Address [address] [place] [address] Phone [phone] Care Team Providers Care Looper Fixer Name Role Phone Unavailable Primary Care Provider Unavailabl e Reason for Visit * Reason Comments Outpatient Testing Encounter Details Date Type Department Care Team Description 05/12/2023 Laboratory Laboratory, [facility] [address] [place] [address] [facility] [address] [place] [address] Antepartum anemia complicating Allergies Active Allergy Reactions [...] Date Type Specialty Care Team Description 05/12/2023 Imaging Radiology Localized swel ling of right foot 05/14/2023 Imaging Radiology 05/22/2023 Office Visit Gynecology Obstetrics Rosemary Angel CRNP [address] [place] [address] 05/26/2023 Office Visit Gynecology Obstetrics Tana Zhao MD [address] [place] [address] [place] [address] 06/02/2023 Office Visit Gynecology Obstetrics Vernon Smith MD [address] [place] [address] 06/09/2023 Office Visit Gynecology Obstetrics Vernon Smith MD [address] [place] [address] Pending Results Name Type Priority Associated Diagnoses Date /Time CBC Lab Routine Antepartum anemia complicating 05/12/2023 9:17 AM EDT Health Maintenance Due Date Last [...] as of this encounter Visit Diagnoses Diagnosis Localized swelling of right foot Antepartum anemia complicating Anemia, antepartum documented in this encounter
--- OUTSIDE RECORDS SUMMARY | 2023-06-13 15:50 | External Medical Summary ---
Author Name Unknown Address Unknown Organization [id number]:[facility] - [address] [place] [address] Laboratory Report Ordering Provider Test Date Status KHOA STEVE 03/25/2023 09:05:46 Final Based on ACOG guideline, ges tational diabetes mellitus is diagnosed when any of the following is met:
Fasting is greater than or equal to 95 mg/dL
1 hour is greater than or equal to 180 mg/dL
2 hour is greater than or equal to 155 mg/dL
3 hour is greater than or equal to 140 mg/dL Observation Date Value Abnormality Reference (Units ) Status Glucose, fasting 03/25/2023 09:05:46 84 70- 94 (mg/dL) Final Performing Location [facility] 0 - [address] [place] [address]
--- OUTSIDE RECORDS SUMMARY | 2023-06-13 15:50 | External Medical Summary ---
Author Name Unknown Address Unknown Organization K01:[facility] [place] [facility] [address] [facility] [address] Laboratory Report Ordering Provider Test Date Status SUNDAR STEVEJIE 03/21/2023 10:11:29 Final Observation Date Value Abnormality Reference (Units ) Status TSH 03/21/2023 10:11:29 1.98 0.27-4.20 (uIU/mL) Final Performing Location [facility] - [address] [facility] [address]
--- OUTSIDE RECORDS SUMMARY | 2023-06-13 15:51 | External Medical Summary | Summary of Care ---
Author Name Unknown Organization [facility] Address [address] [place] [address] Phone [phone] Care Team Providers Care Professor Of Voice Name Role Phone Unavailable Primary Care Provider Unavailabl e Reason for Visit * Reason Comments Return Visit Encounter Details Date Type Department Care Team Description 01/20/2023 Office Visit Gynecology/Obstetrics Horace Menendez [address] [place] [address] Rosemary Angel CRNP [address] [place] [id number] Supervision of other normal , antepartum* Allergies Active Allergy Reactions Severity Noted Date Comments Amoxicillin-Pot Clavulanate Hives 10/19/19 23 Latex Itching 10/23/2022 documented as of this encounter (statuses as of 01/20/2023) Medications Medication Sig Dispensed Refills Start Date End Date Status /Folic Acid Oral Tablet Take by mouth. Womens One A Day gummies- contains 800mcg Folic Acid. 0 Active Cetirizine HCl 10 MG Oral Tablet Take 1 Tablet by mouth in the morning. 0 Active documented as of this encounter (statuses as of 01/20/2023) Active Problems Problem Noted Date Supervision of other normal , a ntepartum 10/23/2022 Estimated Date of Delivery Comme nts Yes 06/09/2023 Based on last me nstrual period of 09/02/2022 (Exact Date) documented as of this encounter (statuses as of 01/20/2023) Social History Tobacco Use Types Packs/Day Years Used Date Smoking Tobacco: Never Smokeless Tobacco: Never Alcohol Use Standard Drinks/Week Comments Not Currently 0 (1 standard drink = 0.6 oz pur e alcohol) Food Insecurity Answer Date Recorded Within the past 12 months, y ou worried that your food would run out before you got money to buy more. Never true 10/15/2022 Within the past 12 months, t he food you bought just didn't last and you didn't have money to get more. Never true 10/15/2022 Estimated Date of Delivery Comme nts Yes 06/09/2023 Based on last me nstrual period of 09/02/2022 (Exact Date) Sex Assigned at Date Recorded Female 10/15/2022 1:39 PM E DT Job Start Date Occupation Industry Not on file Not on file Not on file Travel History Travel Start Travel End Barry 01/04/2023 01/08/2023 [place] 12/31/2022 01/03/2023 [place] 12/27/2022 12/30/2022 documented as of this encounter Last Filed Vital Signs Vital Sign Reading Time Taken Comments Blood Pressure 120/60 01/20/2023 8:03 AM EDT Pulse - - Temperature - - Respiratory Rate - - Oxygen Saturation - - Inhaled Oxygen Concentration - - Weight 88 kg (194 lb) 01/20/2023 8:03 AM EDT Height 162.6 cm (5' 4") 01/20/2023 8:03 AM EDT Body Mass Index 33.3 01/20/2023 8:03 AM EDT documented in this encounter Progress Notes * ANNETTE Chiu - 01/20/2023 8:34 AM EDT 20w Still with intermittent abdominal pain with movement, not at rest. Still playing tennis. Unsure if she is feeling FM yet. Anatomy u/s done today, results pending. No bleeding or LOF. ANNETTE Chiu documented in this encounter Nursing Notes * PATRICK Leon - 01/20/2023 8:19 AM EDT 20w0d Pt has been abdominal pain on and off for about a month, comes with certain movements, pt reports she feels better when she rests. Would like to discuss if decongestants are safe during 2nd trimester. documented in this encounter Plan of Treatment Upcoming Encounters Date Type Specialty Care Team Description 02/18/2023 Office Visit Gynecology Obstetrics Backer, ANNETTE Jim [address] [place] [address] Health Maintenance Due Date Last Done Comments Hepatitis B (1 of 3 - 3-dose series) 1990 COVID-19 Vaccine (#1) 06/19/1989 Depression Screening, Annual for Pts 12 and Over 2000 DTaP,Tdap,and Td Vaccines (1 - Tdap) 12/18/2007 Influenza Vaccine (FLU shot) (Season Ended) 2023 Pap Smear 10/24/2027 10/23/2022 Hepatitis C [...]
--- OUTSIDE RECORDS SUMMARY | 2023-06-13 15:51 | External Medical Summary ---
Author Name Unknown Address Unknown Organization : Laboratory Report Ordering Provider Test Date Status KHOA STEVE 12/18/2022 09:10:41 Final Observation Date Value Abnormality Reference (Units ) Status INTERPRETATION 12/18/2022 09:10:41 SEE BELOW Final Screen negative for open NTD . RISK FOR ONTD 12/18/2022 09:10:41 <1:5000 Final CALC'D GESTATIONAL AGE 0512/18/2022 09:10:41 15.3 Final AFP, SERUM 12/18/2022 09:10:41 25.2 (ng/mL) Final AFP MOM 12/18/2022 09:10:41 0.95 Final Reference Range:
NTD <2 .50
IDD <1.90
TWINS <4.00
TWINS IDD <3.50
TRIPLETS <4.50
The AFP test result indicates that this patient is
screen negative for open NTD. It should be noted
that normal test results can never guarantee the
of a normal baby and that 2-3% of newborns
have some type of physical or mental defect, many
of which are undetectable through any known
diagnostic technique.
This is a screening test, not a diagnostic test.
This risk assessment report is based in part on
demographic data provided by the ordering
physician. Please notify the laboratory promptly
if any data are incorrect. For assistance with
recalculations, please call your local [facility] laboratory. For assistance with
interpretation of these results, please contact
your Local [facility] genetic counselor or
call [phone] ([phone]).
Interpretive Cutoffs
Screen Positive for Open NTD:
> or = 2.50 adjusted MOM
> or = 1.90 adjusted MOM for insulin- dependent diabetics
> or = 4.00 adjusted MOM for twins
> or = 3.50 adjusted MOM for twins insulin-dependent diabetics
> or = 4.50 adjusted MOM for triplets
For additional information, please refer to
[email or web address]
(This link is being provided for
informational/educational purposes only.) DATE OF 12/18/2022 09:10:41 1990 Final COLLECTION DATE 12/18/2022 09:10:41 12/18/2022 Final MATERNAL WEIGHT 12/18/2022 09:10:41 186 (lbs ) Final EST'D DATE OF DELIVERY 12/18/2022 09:10:41 06/09/2023 Final KEVIN DETERMINED BY 12/18/2022 09:10:41 LMP Final MOTHER'S ETHNIC ORIGIN 12/18/2022 09:10:41 WHITE Final NUMBER OF FETUSES 12/18/2022 09:10:41 1 Final INSULIN DEPEND DIABETIC 12/18/2022 09:10:41 NO Final REPEAT SPECIMEN 12/18/2022 09:10:41 NO Final HX OF NEURAL TUBE DEFECTS 12/18/2022 09:10:41 NO Final PREV DOWN SYND 12/18/2022 09:10:41 NO Final DONOR EGG 12/18/2022 09:10:41 NO Final DONOR AGE: EGG RETRIEVAL 12/18/2022 09:10:41 NOT GIVEN Final Test performed by [facility]
[address],
[place] [address]

Culinary Director: Rachel Martinez MD,PHD,EV
Test Reported by [facility],
[facility],
[address] [place], [place]
Arie Castañeda M.D., Ph.D., Director of Laboratories
, CLIA [id number] Performing Location
--- OUTSIDE RECORDS SUMMARY | 2023-06-13 15:51 | External Medical Summary | Summary of Care ---
Author Name Unknown Organization [facility] Address [address] [place] [address] Phone [phone] Care Team Providers Care Edi Consultant Name Role Phone Unavailable Primary Care Provider Unavailabl e Reason for Visit * Reason Comments Outpatient Testing Encounter Details Date Type Department Care Team Description 12/18/2022 Laboratory Laboratory, [facility] [address] [place] [address] [facility] [address] [place] [address] Supervision of other normal , antepartum Allergies Active Allergy Reactions Severity Noted Date Comments Amoxicillin-Pot Clavulanate Hives 10/19/19 23 Latex Itching 10/23/2022 documented as of this encounter (statuses as of 12/18/2022) Medications Medication Sig Dispensed Refills Start Date End Date Status /Folic Acid Oral Tablet Take by mouth. Womens One A Day gummies- contains 800mcg Folic Acid. 0 Active Cetirizine HCl 10 MG Oral Tablet (ZyrTEC Allergy) Take 1 Tablet by mouth in the morning. 0 Active documented as of this encounter (statuses as of 12/18/2022) Active Problems Problem Noted Date Supervision of other normal , a ntepartum 10/23/2022 Estimated Date of Delivery Comme nts Yes 06/09/2023 Based on last me nstrual period of 09/02/2022 (Exact Date) documented as of this encounter (statuses as of 12/18/2022) Social History Tobacco Use Types Packs/Day Years [...] Encounters Date Type Specialty Care Team Description 01/20/2023 Imaging Radiology 01/20/2023 Office Visit Gynecology Obstetrics Rosemary Angel CRNP [address] [place] [address] Pending Results Name Type Priority Associated Diagnoses Date /Time MATERNAL SERUM AFP Lab Routine Supervision of other normal , antepartum 12/18/2022 9:10 AM EDT Health Maintenance Due Date Last Done Comments Hepatitis B (1 of 3 - 3-dose series) 1990 COVID-19 Vaccine (#1) 06/19/1989 Depression Screening, Annual for Pts 12 and Over 2000 DTaP,Tdap,and Td Vaccines (1 - Tdap) 12/18/2007 Influenza Vaccine (FLU shot) (Season Ended) 2023 Pap Smear 10/24/2027 10/23/2022 Hepatitis C Screening Completed 10/23/2022 GARDASIL-HPV IMMUNIZATION SERIES Aged Out No longer eligible based on patient's age to complete this topic MENINGOCOCCAL (MENACTRA/MENVEO) Aged Out No longer eligible based on patient's age to complete this topic Pneumococcal Vaccine: Pediat rics (0 to 5 Years) and At-Risk Patients (6 to 64 Years) Aged Out No longer eligi ble based on patient's age to complete this topic documented as of this encounter Medical Devices Not on filedocumented as of this encounter Visit Diagnoses Diagnosis Supervision of other normal , antepartum documented in this encounter
--- OUTSIDE RECORDS SUMMARY | 2023-06-13 15:51 | External Medical Summary | Summary of Care ---
Author Name Unknown Organization [facility] Address [address] [place] [address] Phone [phone] Care Team Providers Care Arts [employer] Sciences Dean Name Role Phone Unavailable Primary Care Provider Unavailabl e Reason for Visit * Reason Comments Return Visit Encounter Details Date Type Department Care Team Description 12/18/2022 [facility] [address] [place] [address] Anna Marie CRNP [address] [place] [address] Supervision of other normal , antepartum* Allergies [...] Sign Reading Time Taken Comments Blood Pressure 122/70 12/18/2022 8:48 AM EDT Pulse - - Temperature - - Respiratory Rate - - Oxygen Saturation - - Inhaled Oxygen Concentration - - Weight 84.8 kg (187 lb) 12/18/2022 8:48 AM EDT Height - - Body Mass Index 32.1 11/21/2022 9:11 AM EDT documented in this encounter Progress Notes * ANNETTE Lujan - 12/18/2022 8:49 AM EDT 15w 2d No movement. Denies bleeding, pelvic pain. Some nausea. Low risk Qnatal, having a girl. Anatomy scan ordered for 20 wks. Pulled a round ligament playing tennis, starting to feel better. Discussed exercise in . Discussed MSAFP and role in screening for ONTD; will obtain today. Discussed follow up for abnormalresults. 4 week return ANNETTE Selby documented in this encounter Nursing Notes * Velma Morales LPN - 12/18/2022 8:46 AM EDT 15w2d Denies vaginal bleeding/rom Absent movement May have pulled round ligament on Friday- getting better. documented in this encounter Plan of Treatment Upcoming Encounters Date Type Specialty Care Team Description 12/18/2022 Laboratory Laboratory Pan Menendez [address] [place] [address] Supervision of other normal , antepartum 01/20/2023 Imaging Radiology 01/20/2023 Office Visit Gynecology Obstetrics Rosemary Angel CRNP [address] [place] [address] Pending Results Name Type Priority Associated Diagnoses Date /Time MATERNAL SERUM AFP Lab Routine Supervision of other normal , antepartum 12/18/2022 9:10 AM EDT Scheduled Orders Name Type Priority Associated Diagnoses Orde r Schedule US PREG SINGLE/1ST GEST, 14 WEEKS OR LATER Medical Imaging Routine Supervision of other normal , antepartum Expected: 01/20/2023 (Approximate), Expires: 01/19/2024 MATERNAL SERUM AFP Lab Routine Supervision of other normal , antepartum Expected: 12/18/2022 (Approximate), Expires: 12/19/2023 Health Maintenance Due Date Last Done Comments [...] Supervision of other normal , antepartum- Primary Supervision of other normal , antepartum documented in this encounter
== END 2023-06-12 18:01 | disposition home or self-care (01) | DRG 807 ==
LOC: OPB 06:43 → 4S1 06:52 → 4E2 06-10 09:15